=== PATIENT | female | born 1945 | race Caucasian/White ===

== ENCOUNTER 2018-08-31 08:42 | Emergency (ER) | payer MEDICARE, BC ==
--- OUTSIDE RECORDS SUMMARY | 2018-08-31 08:56 | XMS REPORT | Continuity of Care Document ---
:1945 External Reference #:[id number] Author Name Laxmi Maza PA Address [address] [place] [address] Care Team Providers Name Role Phone Juanpablo De La Torre M.D. Care Team Information [employer] Unavailable Payers Type Date Identification Numbers Payment Provider Subscriber Effective: 2011 Policy Number: [id number] Medicare - NGS [employer] Name: Medicare [address] PayID: [id number] [place] [address] Effective: 2011 Policy Number: [id number] / [place]- Ppo [employer]yna [employer] PayID: [id number] [address] [address] [place] [address] Advance Directives Type Date Description Status Comment Other Directive 05/31/2010 Health Care Proxy Current and Verified Problems Date Description Provider Status Onset: 01/11/2013 Mixed hyperlipidemia Kobi Schuler Active Onset: 01/11/2013 Pure hypercholesterolemia Kobi Schuler Active Onset: 01/11/2013 Anxiety state Kobi Schuler Active Onset: 02/06/2016 Essential hypertension Laxmi Maza PA Active Onset: 02/06/2016 Gastro-esophageal reflux disease with Laxmi Maza PA Active esophagitis Onset: 04/30/2018 Gastro-esophageal reflux disease with Laxmi Maza PA Active esophagitis Family History Date Family Member(s) Problem(s) Comments Father due to Unknown Causes () Mother due to Liver Cancer () Social History Type Date Description Comments Sex Unknown Marital Status Has been 1 time Lives With Alone 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[employer] ETOH Use Rarely consumes alcohol Tobacco Use Start: 11/17/66 Patient is a former quit 20 yrs End: 11/17/92 smoker agoDocument: 05/05/12 - History 04/19/14 08/15/14 09/15/14 Recreational Drug Use Denies Drug Use Smoking Status Reviewed: 08/04/18 Patient is a former quit 20 yrs smoker agoDocument: 05/05/12 - History 04/19/14 08/15/14 09/15/14 Allergies, Adverse Reactions, Alerts Date Description Reaction Status Severity Comments 05/05/2012 Amoxicillin Active 01/22/2016 Crestor joint reaction Active Medications Medication Date Status Form Strength Qnty SIG Indications Ordering Provider Pravastatin Active Tablets 80mg 90tabs take 1 E78.5 Juanpablo Sodium 016 tablet by Murphy mouth at s, M.DKanwal bedtime Omeprazole Active Capsules 20mg 90caps take one Juanpablo 014 DR capsule Murphy by mouth s, M.DKanwal every day Carvedilol Active Tablets 6.25mg 60tabs take one Juanpablo 014 tablet by Murphy mouth s, M.DKanwal twice a day Cozaar Active Tablets 50mg 90tabs take one R06.02 Juanpablo 014 tablet by Murphy mouth s, MSandra every day Lorazepam Hx Tablets 1mg 2tabs 1 by 793.80 Juanpablo 015 - mouth one Murphy hour sOsbaldo 016 prior to procedure ,if needed may repeat Pravastatin Hx Tablets 20mg 90tabs 1 by Juanpablo Sodium 015 - mouth Murphy every day sOsbaldo 015 Pravastatin Hx Tablets 80mg 90tabs one every Juanpablo Sodium 015 - evening Murphy sOsbaldo 016 Crestor Hx Tablets 20mg 90tabs 1 by Juanpablo 014 - mouth Murphy every day s MSandra 015 Prilosec Hx Capsules 20mg 90caps 1 by 530.11 Juanpablo 014 - DR mouth Murphy every day sOsbaldo 015 Lisinopril Hx Tablets 10mg 30tabs 1 by 401.9 Juanpablo 014 - mouth Murphy every day sOsbaldo 014 Pravastatin Hx Tablets 80mg 30tabs one q Juanpablo Sodium 014 - evening Murphy Osbaldo jansen 014 Lisinopril Hx Tablets 5mg 30tabs 1 by 401.9 Juanpablo 014 - mouth Murphy every day Osbaldo jansen 014 Pravastatin Hx Tablets 40mg take 2 272.2 Juanpablo Sodium 014 - tablet by Murphy mouth at Osbaldo jansen 014 bedtime Pravastatin Hx Tablets 40mg 30tabs take one 272.2 Juanpablo Sodium 014 - tablet by Murphy mouth Osbaldo jansen 014 every evening Right Hx Juanpablo Stereotactic 014 - Murphy Breast Biopsy Osbaldo jansen 014 Pravastatin Hx Tablets 20mg 90tabs 1 po qday 272.2 Juanpablo Sodium 012 - needs Murphy appt for Osbaldo jansen 014 further refill Carvedilol Hx Tablets 3.125mg Unknown 000 - 014 Immunizations CPT Code Status Date Vaccine Reaction Lot # 70176 Given 08/04/2018 Flu High Dose Vaccine risk & benefits HD FluVac discussed [id number] 80662 Given 08/01/2016 Flu High Dose Vaccine risk & benefits Hidose Flu discussed [id number] 56599 Given 08/04/2015 Flu High Dose Vaccine risk & benefits Hi/dose/flu discussed [id number] 10797 Given 08/15/2014 Flu High Dose Vaccine risk & benefits High/do/Flu discussed [id number] 59857 Given 01/24/2014 Shingles (Zoster) risk & benefits Shingles [id number] Vaccine discussed p 19587 Given 01/17/2014 Prevnar 13 64617 Given 08/10/2013 Flu High Dose Vaccine High doseflu [id number] 19981 Given 08/03/2012 Flu High Dose Vaccine High dose [id number] 03456 Given 08/27/2010 Flu Triv Old Code 90038 Given 09/25/2009 Flu Triv Old Code 39511 Given 09/25/2009 Swine flu administration 99089 Given 05/10/2009 Tdap Vaccine over 7 yrs old Vital Signs Date Vital Result Comment 08/04/2018 8:35am Weight 138.00 lb 04/30/2018 8:36am Weight 139.00 lb BP Systolic 132 mmHg BP Diastolic 80 mmHg 01/27/2018 8:41am Weight 139.00 lb BP Systolic 130 mmHg BP Diastolic 80 mmHg Height 56 inches 4'8" Body Temperature 98.0 F Respiratory Rate 12 /min BMI (Body Mass Index) 31.2 kg/m2 11/04/2017 8:28am Weight 141.00 lb BP Systolic 134 mmHg BP Diastolic 80 mmHg 08/07/2017 8:30am Weight 141.00 lb BP Systolic 140 mmHg BP Diastolic 80 mmHg 05/02/2017 8:34am Weight 140.00 lb BP Systolic 134 mmHg BP Diastolic 80 mmHg 01/22/2017 8:30am Weight 141.00 lb BP Systolic 130 mmHg BP Diastolic 80 mmHg Height 56 inches 4'8" Body Temperature 97.0 F Respiratory Rate 12 /min BMI (Body Mass Index) 31.6 kg/m2 10/23/2016 8:47am Weight 139.00 lb w boots BP Systolic 124 mmHg BP Diastolic 74 mmHg 07/24/2016 9:15am Weight 140.00 lb BP Systolic 136 mmHg BP Diastolic 80 mmHg 04/23/2016 9:10am Weight 140.00 lb BP Systolic 124 mmHg BP Diastolic 80 mmHg 01/22/2016 8:32am Weight 138.00 lb BP Systolic 130 mmHg BP Diastolic 84 mmHg Height 56.6 inches 4'8.60" Heart Rate 70 /min Body Temperature 98.0 F Respiratory Rate 14 /min BMI (Body Mass Index) 30.3 kg/m2 09/15/2015 8:41am Weight 138.00 lb BP Systolic 118 mmHg BP Diastolic 68 mmHg 06/14/2015 9:00am Weight 135.00 lb BP Systolic 128 mmHg BP Diastolic 78 mmHg 03/09/2015 10:09am Weight 135.00 lb BP Systolic 126 mmHg BP Diastolic 70 mmHg 02/07/2015 9:11am Weight 135.00 lb BP Systolic 128 mmHg BP Diastolic 80 mmHg 12/15/2014 8:33am Weight 136.00 lb BP Systolic 128 mmHg BP Diastolic 60 mmHg 09/15/2014 9:22am Weight 133.00 lb BP Systolic 168 mmHg BP Diastolic 90 mmHg 08/15/2014 9:20am Weight 131.00 lb BP Systolic 150 mmHg pt machine 149/77 BP Diastolic 80 mmHg pt machine 149/77 07/12/2014 9:20am Weight 130.00 lb BP Systolic 130 mmHg BP Diastolic 80 mmHg 06/20/2014 10:15am Weight 128.00 lb BP Systolic 154 mmHg BP Diastolic 78 mmHg Heart Rate 70 /min O2 % BldC Oximetry 98 % 05/27/2014 11:01am Weight 128.00 lb BP Systolic 148 mmHg BP Diastolic 80 mmHg 04/19/2014 9:31am BP Systolic 138 mmHg BP Diastolic 84 mmHg 04/19/2014 8:58am Weight 130.00 lb BP Systolic 156 mmHg BP Diastolic 90 mmHg 01/17/2014 9:49am Weight 128.00 lb BP Systolic 128 mmHg BP Diastolic 78 mmHg Height 56.6 inches 4'8.60" Heart Rate 70 /min Body Temperature 97.0 F Respiratory Rate 12 /min BMI (Body Mass Index) 28.1 kg/m2 07/12/2013 1:19pm Weight 125.00 lb BP Systolic 126 mmHg BP Diastolic 80 mmHg 01/11/2013 1:18pm Weight 127.00 lb BP Systolic 126 mmHg BP Diastolic 80 mmHg 10/12/2012 1:04pm Weight 131.00 lb BP Systolic 130 mmHg BP Diastolic 70 mmHg 08/17/2012 1:05pm Weight 128.00 lb BP Systolic 150 mmHg BP Diastolic 68 mmHg 08/03/2012 1:34pm Weight 130.00 lb BP Systolic 150 mmHg giselle after 10 mins 140/78 BP Diastolic 80 mmHg giselle after 10 mins 140/78 Heart Rate 78 /min O2 % BldC Oximetry 98 % 05/05/2012 11:27am Weight 129.00 lb BP Systolic 128 mmHg BP Diastolic 80 mmHg Results Test Date Facility Test Result H/L Range Note Basic Metabolic Panel 04/20/2018 [facility] Glucose 110 mg/dL High 74-106 8 [phone] BUN 14 mg/dL 7-18 Creatinine 0.8 mg/dL 0.6-1.3 Glom Filtration Rate, Estimate >60 mL/min >60 If >60 mL/min >60 2 BUN/Creat 17.5 ratio Sodium 141 mmol/L 136-145 Potassium 3.8 mmol/L 3.5-5.1 Chloride 109 mmol/L High 98-107 Carbon Dioxide 23 mmol/L 21-32 Anion Gap 9 mEq/L 8-16 Calcium 9.0 mg/dL 8.5-10.1 CBC Auto Diff 04/20/2018 [facility] White Blood Count 5.5 K/uL 3.1 -10.7 [phone] Red Blood Count 4.06 M/uL 3.90-5.40 Hemoglobin 13.0 gm/dL 11.6-15.8 Hematocrit 38.8 % 36.0-46.1 Mean Cell Volume 95.6 fl 80.9-99.0 Mean Corpuscular HGB 32.0 pg 25.9-32.7 Mean Corpuscular HGB Conc 33.5 g/dL 30.8-34.3 Platelet Count 280 K/uL 155-360 Red Cell Distri Width SD 43.5 fl 3-47 Red Cell Distri Width %CV 12.8 % 11.7-14.4 Mean Platelet Volume 12.3 fL 8.9-12.4 Neut% 57.9 % 40.4-72.8 Lymph % 29.5 % 20.0-42.0 Mckenzie % 8.4 % 4.3-13.2 Eo% 3.7 % 0.0-6.6 Bas% 0.5 % 0.0-1.1 Neut# 3.16 K/uL 1.8-7.0 Lymph # 1.61 K/uL 1.0-4.0 Mckenzie # 0.46 K/uL 0.3-0.9 Eos # 0.20 K/uL 0.0-0.5 Baso # 0.03 K/uL 0.0-0.1 Lipid Profile 04/20/2018 [facility] Cholesterol 186 mg/dL <200 3 (Trig/Chol/HDL) [phone] Triglycerides 295 mg/dL High <150 4 HDL Cholesterol 36 mg/dL Low >40 5 LDL-Cholesterol 91 mg/dL < 100 6 Liver Function Panel 04/20/2018 [facility] Total Protein 7.3 g/dL 6.4-8.2 [phone] Albumin 3.9 g/dL 3.4-5.0 Globulin 3.4 g/dL 1.9-4.3 Alb/Glob 1.1 ratio Bilirubin,Total 0.7 mg/dL 0.2-1.0 Bilirubin,Direct 0.2 mg/dL 0.0-0.2 Bilirubin,Indirect 0.5 mg/dL 0.0-0.9 Sgot/Ast 15 U/L 15-37 SGPT/Alt 25 U/L 12-78 Alkaline Phosphatase 74 U/L 45-117 Basic Metabolic Panel 01/19/2018 [facility] Glucose 115 mg/dL High 74-106 7 [phone] BUN 15 mg/dL 7-18 Creatinine 0.7 mg/dL 0.6-1.3 Glom Filtration Rate, Estimate >60 mL/min >60 If >60 mL/min >60 8 BUN/Creat 21.4 ratio Sodium 142 mmol/L 136-145 Potassium 4.0 mmol/L 3.5-5.1 Chloride 109 mmol/L High 98-107 Carbon Dioxide 27 mmol/L 21-32 Anion Gap 6 mEq/L Low 8-16 Calcium 9.3 mg/dL 8.5-10.1 CBC No Diff 01/19/2018 [facility] White Blood Count 5.8 K/uL 3.1- 10.7 [phone] Red Blood Count 4.20 M/uL 3.90-5.40 Hemoglobin 13.4 gm/dL 11.6-15.8 Hematocrit 39.7 % 36.0-46.1 Mean Cell Volume 94.5 fl 80.9-99.0 Mean Corpuscular HGB 31.9 pg 25.9-32.7 Mean Corpuscular HGB Conc 33.8 g/dL 30.8-34.3 Platelet Count 283 K/uL 155-360 Red Cell Distri Width %CV 12.8 % 11.7-14.4 Mean Platelet Volume 12.3 fL 8.9-12.4 Liver Function Panel 01/19/2018 [facility] Total Protein 7.9 g/dL 6.4-8.2 [phone] Albumin 4.0 g/dL 3.4-5.0 Globulin 3.9 g/dL 1.9-4.3 Alb/Glob 1.0 ratio Bilirubin,Total 0.6 mg/dL 0.2-1.0 Bilirubin,Direct 0.2 mg/dL 0.0-0.2 Bilirubin,Indirect 0.4 mg/dL 0.0-0.9 Sgot/Ast 19 U/L 15-37 SGPT/Alt 21 U/L 12-78 Alkaline Phosphatase 78 U/L 45-117 Liver Function Panel 07/28/2017 [facility] Total Protein 7.5 g/dL 6.4-8.2 9 [phone] Albumin 3.7 g/dL 3.4-5.0 Globulin 3.8 g/dL 1.9-4.3 Alb/Glob 1.0 ratio Bilirubin,Total 0.6 mg/dL 0.2-1.0 Bilirubin,Direct 0.2 mg/dL 0.0-0.2 Bilirubin,Indirect 0.4 mg/dL 0.0-0.9 Sgot/Ast 22 U/L 15-37 SGPT/Alt 39 U/L 12-78 Alkaline Phosphatase 79 U/L 45-117 Basic Metabolic Panel 07/28/2017 [facility] Glucose 110 mg/dL High 74-106 [phone] BUN 11 mg/dL 7-18 Creatinine 0.8 mg/dL 0.6-1.3 Glom Filtration Rate, Estimate >60 mL/min >60 If >60 mL/min >60 10 BUN/Creat 13.7 ratio Sodium 142 mmol/L 136-145 Potassium 3.9 mmol/L 3.5-5.1 Chloride 108 mmol/L High 98-107 Carbon Dioxide 25 mmol/L 21-32 Anion Gap 9 mEq/L 8-16 Calcium 9.5 mg/dL 8.5-10.1 Lipid Profile 07/28/2017 [facility] Cholesterol 198 mg/dL <200 11 (Trig/Chol/HDL) [phone] Triglycerides 296 mg/dL High <150 12 HDL Cholesterol 39 mg/dL Low >40 13 LDL-Cholesterol 100 mg/dL < 100 14 CBC No Diff 07/28/2017 [facility] White Blood Count 5.9 K/uL 3.1- 10.7 [phone] Red Blood Count 4.19 M/uL 3.90-5.40 Hemoglobin 13.6 gm/dL 11.6-15.8 Hematocrit 40.2 % 36.0-46.1 Mean Cell Volume 95.9 fl 80.9-99.0 Mean Corpuscular HGB 32.5 pg 25.9-32.7 Mean Corpuscular HGB Conc 33.8 g/dL 30.8-34.3 Platelet Count 304 K/uL 150-400 Red Cell Distri Width %CV 12.6 % 11.7-14.4 Mean Platelet Volume 12.1 fL 8.9-12.4 Xray 02/10/2017 [facility] Dexa scan <pending> [address] [place], [place] [id number] [phone] Xray 02/07/2017 [facility] bilateral <pending> [address] [place] [address] [phone] Basic Metabolic 10/14/2016 [facility] Glucose 108 mg/dL High 74- 106 15 Panel [phone] BUN 11 mg/dL 7-18 Creatinine 0.8 mg/dL 0.6-1.3 Glom Filtration Rate, Estimate >60 mL/min >60 If >60 mL/min >60 16 BUN/Creat 13.7 ratio Sodium 142 mmol/L 136-145 Potassium 3.8 mmol/L 3.5-5.1 Chloride 109 mmol/L High 98-107 Carbon Dioxide 24 mmol/L 21-32 Anion Gap 9 mEq/L 8-16 Calcium 8.8 mg/dL 8.5-10.1 CBC No Diff 10/14/2016 [facility] White Blood Count 5.7 K/uL 3.1- 10.7 [phone] Red Blood Count 4.28 M/uL 3.90-5.40 Hemoglobin 13.6 gm/dL 11.6-15.8 Hematocrit 41.2 % 36.0-46.1 Mean Cell Volume 96.3 fl 80.9-99.0 Mean Corpuscular HGB 31.8 pg 25.9-32.7 Mean Corpuscular HGB Conc 33.0 g/dL 30.8-34.3 Platelet Count 290 K/uL 155-360 Red Cell Distri Width %CV 12.8 % 11.7-14.4 Mean Platelet Volume 13.1 fL High 8.9-12.4 Lipid Profile 10/14/2016 [facility] Cholesterol 187 mg/dL <200 17 (Trig/Chol/HDL) [phone] Triglycerides 282 mg/dL High <150 18 HDL Cholesterol 41 mg/dL >40 19 LDL-Cholesterol 90 mg/dL < 100 20 Liver Function Panel 10/14/2016 [facility] Total Protein 7.5 g/dL 6.4-8.2 [phone] Albumin 3.9 g/dL 3.4-5.0 Globulin 3.6 g/dL 1.9-4.3 Alb/Glob 1.1 ratio Bilirubin,Total 0.6 mg/dL 0.2-1.0 Bilirubin,Direct 0.1 mg/dL 0.0-0.2 Bilirubin,Indirect 0.5 mg/dL 0.0-0.9 Sgot/Ast 16 U/L 15-37 SGPT/Alt 27 U/L 12-78 Alkaline Phosphatase 71 U/L 45-117 Basic Metabolic Panel 01/08/2016 [facility] Glucose 111 mg/dL High 74-106 [phone] BUN 11 mg/dL 7-18 Creatinine 0.8 mg/dL 0.6-1.3 Glom Filtration Rate, Estimate >60 mL/min >60 If >60 mL/min >60 21 BUN/Creat 13.7 ratio Sodium 143 mmol/L 136-145 Potassium 3.7 mmol/L 3.5-5.1 Chloride 107 mmol/L 98-107 Carbon Dioxide 25 mmol/L 21-32 Anion Gap 11 mEq/L 8-16 Calcium 9.0 mg/dL 8.5-10.1 CBC W/Automated Diff 01/08/2016 [facility] White Blood 4.9 K/uL 3.1-10.7 [phone] Count Red Blood Count 4.18 M/uL 3.90-5.40 Hemoglobin 13.3 gm/dL 11.6-15.8 Hematocrit 40.1 % 36.0-46.1 Mean Cell Volume 95.9 fl 80.9-99.0 Mean Corpuscular HGB 31.8 pg 25.9-32.7 Mean Corpuscular HGB Conc 33.2 g/dL 30.8-34.3 Platelet Count 292 K/uL 155-360 Red Cell Distri Width SD 44.4 fl 3-47 Red Cell Distri Width %CV 12.8 % 11.7-14.4 Mean Platelet Volume 12.7 fL High 8.9-12.4 Neut% 54.4 % 40.4-72.8 Lymph % 33.5 % 17.0-46.1 Mckenzie % 8.0 % 4.3-13.2 Eo% 3.5 % 0.0-6.6 Bas% 0.6 % 0.0-1.1 Neut# 2.67 K/uL 1.8-7.0 Lymph # 1.64 K/uL Low 1.8-7.0 Mckenzie # 0.39 K/uL 0.3-0.9 Eos # 0.17 K/uL 0.0-0.5 Baso # 0.03 K/uL 0.0-0.1 LDL Cholesterol Profile 01/08/2016 [facility] Cholesterol 199 mg/dL <200 22 [phone] Triglycerides 299 mg/dL High <150 23 HDL Cholesterol 34 mg/dL Low >40 24 LDL-Cholesterol 105 mg/dL < 100 25 Liver Function Tests 01/08/2016 [facility] Total Protein 7.5 g/dL 6.4-8.2 [phone] Albumin 3.9 g/dL 3.4-5.0 Globulin 3.6 g/dL 1.9-4.3 Alb/Glob 1.1 ratio Bilirubin,Total 0.6 mg/dL 0.2-1.0 Bilirubin,Direct 0.1 mg/dL 0.0-0.2 Bilirubin,Indirect 0.5 mg/dL 0.0-0.9 Sgot/Ast 22 U/L 15-37 SGPT/Alt 39 U/L 12-78 Alkaline Phosphatase 77 U/L 45-117 Basic Metabolic Panel 01/09/2015 [facility] Glucose 101 mg/dL 74- 106 [phone] BUN 12 mg/dL 7-18 Creatinine 0.9 mg/dL 0.6-1.3 Glom Filtration Rate, Estimate >60 mL/min >60 If >60 mL/min >60 26 BUN/Creat 13.3 ratio Sodium 144 mmol/L 136-145 Potassium 3.7 mmol/L 3.5-5.1 Chloride 111 mmol/L High 98-107 Carbon Dioxide 26 mmol/L 21-32 Anion Gap 7 mEq/L Low 8-16 Calcium 8.6 mg/dL 8.5-10.1 Liver Function Tests 01/09/2015 [facility] Total Protein 7.1 g/dL 6.4-8.2 [phone] Albumin 3.8 g/dL 3.4-5.0 Globulin 3.3 g/dL 1.9-4.3 Alb/Glob 1.2 ratio Bilirubin,Total 0.7 mg/dL 0.2-1.0 Bilirubin,Direct 0.2 mg/dL 0.0-0.2 Bilirubin,Indirect 0.5 mg/dL 0.0-0.9 Sgot/Ast 15 U/L 15-37 SGPT/Alt 28 U/L 12-78 Alkaline Phosphatase 75 U/L 45-117 LDL Cholesterol Profile 01/09/2015 [facility] Cholesterol 165 mg/dL < 200 27 [phone] Triglycerides 216 mg/dL < 150 28 HDL Cholesterol 35 mg/dL > 40 29 LDL-Cholesterol 87 mg/dL < 100 30 Basic Metabolic Panel 09/05/2014 [facility] Glucose 104 mg/dL 74- 106 [phone] BUN 13 mg/dL 7-18 Creatinine 0.8 mg/dL 0.6-1.3 Glom Filtration Rate, Estimate >60 mL/min >60 If >60 mL/min >60 31 BUN/Creat 16.2 ratio Sodium 142 mmol/L 136-145 Potassium 3.9 mmol/L 3.5-5.1 Chloride 108 mmol/L High 98-107 Carbon Dioxide 28 mmol/L 21-32 Anion Gap 10 mEq/L 8-16 Calcium 9.1 mg/dL 8.5-10.1 Liver Function Tests 09/05/2014 [facility] Total Protein 7.6 g/dL 6.4-8.2 [phone] Albumin 3.9 g/dL 3.4-5.0 Globulin 3.7 g/dL 1.9-4.3 Alb/Glob 1.1 ratio Bilirubin,Total 0.5 mg/dL 0.2-1.0 Bilirubin,Direct 0.1 mg/dL 0.0-0.2 Bilirubin,Indirect 0.4 mg/dL 0.0-0.9 Sgot/Ast 15 U/L 15-37 SGPT/Alt 28 U/L 12-78 Alkaline Phosphatase 73 U/L 45-117 LDL Cholesterol Profile 09/05/2014 [facility] Cholesterol 204 mg/dL 32 [phone] Triglycerides 311 mg/dL 33 HDL Cholesterol 37 mg/dL 34 LDL-Cholesterol 105 mg/dL 35 Laboratory test 09/05/2014 [facility] CK-MB (Mass) 0.9 ng/ml 0.5- 3.6 finding [phone] LDL Cholesterol 06/13/2014 [facility] Cholesterol 188 mg/dL 120- 200 Profile [phone] Triglycerides 206 mg/dL 16-231 HDL Cholesterol 38 mg/dL 29-83 LDL-Cholesterol 109 mg/dL 62-185 Liver Function Tests 06/13/2014 [facility] Total Protein 7.6 g/dL 6.3-8.0 [phone] Albumin 3.8 g/dL 3.5-5.0 Globulin 3.8 g/dL 1.9-4.3 Alb/Glob 1.0 ratio Bilirubin,Total 0.7 mg/dL 0.2-1.2 Bilirubin,Direct 0.1 mg/dL 0.1-0.4 Bilirubin,Indirect 0.6 mg/dL 0.0-0.9 Sgot/Ast 16 U/L 16-40 SGPT/Alt 32 U/L 30-65 Alkaline Phosphatase 79 U/L 50-136 Laboratory test 05/23/2014 [facility] D-Dimer, < 0.22 ug/mL 36 finding [phone] Quantitative Thyroid Stim Hormone 1.76 uIU/mL 0.49-4.67 CBC W/Automated Diff 05/23/2014 [facility] White Blood 6.5 K/uL 3.1-10.7 [phone] Count Red Blood Count 4.09 M/uL 3.90-5.40 Hemoglobin 13.3 gm/dL 11.6-15.8 Hematocrit 38.7 % 36.0-46.1 Mean Cell Volume 94.6 fl 80.9-99.0 Mean Corpuscular HGB 32.5 pg 25.9-32.7 Mean Corpuscular HGB Conc 34.4 g/dL High 30.8-34.3 Platelet Count 354 K/uL 155-360 Red Cell Distri Width SD 42.8 fl 3-47 Red Cell Distri Width %CV 12.6 % 11.7-14.4 Mean Platelet Volume 11.8 fL 8.9-12.4 Neut% 57.9 % 40.4-72.8 Lymph % 32.1 % 17.0-46.1 Mckenzie % 7.5 % 4.3-13.2 Eo% 1.7 % 0.0-6.6 Bas% 0.8 % 0.0-1.1 Neut# 3.78 K/uL 1.0-7.0 Lymph # 2.09 K/uL 0.8-3.4 Mckenzie # 0.49 K/uL 0.3-0.9 Eos # 0.11 K/uL 0.0-0.5 Baso # 0.05 K/uL 0.0-0.1 Laboratory test finding 05/23/2014 [facility] CK 75 U/L 26-190 [phone] Troponin-I < 0.02 ng/mL 0.00-0.50 37 Comprehensive Metabolic 05/23/2014 [facility] Glucose 112 mg/dL 76 -115 Panel [phone] BUN 15 mg/dL 5-23 Creatinine 0.7 mg/dL 0.5-1.4 Glom Filtration Rate, Estimate >60 mL/min >60 If >60 mL/min >60 38 BUN/Creat 21.4 ratio Sodium 138 mmol/L 136-145 Potassium 3.7 mmol/L 3.5-5.1 Chloride 106 mmol/L 98-107 Carbon Dioxide 25 mEq/L 18-29 Anion Gap 11 mEq/L 8-16 Calcium 9.1 mg/dL 8.5-10.1 Total Protein 7.7 g/dL 6.3-8.0 Albumin 3.9 g/dL 3.5-5.0 Globulin 3.8 g/dL 1.9-4.3 Alb/Glob 1.0 ratio Bilirubin,Total 0.4 mg/dL 0.2-1.2 Sgot/Ast 16 U/L 16-40 SGPT/Alt 28 U/L Low 30-65 Alkaline Phosphatase 83 U/L 50-136 LDL Cholesterol Profile 04/06/2014 [facility] Cholesterol 193 mg/dL 120-200 [phone] Triglycerides 238 mg/dL High 16-231 HDL Cholesterol 38 mg/dL 29-83 LDL-Cholesterol 107 mg/dL 62-185 Xray 01/24/2014 [facility] dexa scan <pending> Xray 01/24/2014 [facility] [address] bilateral <pending> [address] [place] [address] mammogram [phone] Laboratory test 01/17/2014 [facility] ThinPrep Pap: See Note 39 finding [phone] Cervix/Endocx Liver Function 01/05/2014 [facility] Total Protein 7.7 g/dL 6.3- 8.0 Tests [phone] Albumin 3.9 g/dL 3.5-5.0 Globulin 3.8 g/dL 1.9-4.3 Alb/Glob 1.0 ratio Bilirubin,Total 0.5 mg/dL 0.2-1.2 Bilirubin,Direct 0.1 mg/dL 0.1-0.4 Bilirubin,Indirect 0.4 mg/dL 0.0-0.9 Sgot/Ast 20 U/L 16-40 SGPT/Alt 27 U/L Low 30-65 Alkaline Phosphatase 90 U/L 50-136 Basic Metabolic Panel 01/05/2014 [facility] Glucose 104 mg/dL 76- 115 [phone] BUN 13 mg/dL 5-23 Creatinine 0.7 mg/dL 0.5-1.4 Glom Filtration Rate, Estimate >60 mL/min >60 If >60 mL/min >60 40 BUN/Creat 18.5 ratio Sodium 139 mmol/L 136-145 Potassium 4.0 mmol/L 3.5-5.1 Chloride 109 mmol/L High 98-107 Carbon Dioxide 24 mEq/L 18-29 Anion Gap 10 mEq/L 8-16 Calcium 8.9 mg/dL 8.5-10.1 LDL Cholesterol Profile 01/05/2014 [facility] Cholesterol 199 mg/dL 120-200 [phone] Triglycerides 208 mg/dL 16-231 HDL Cholesterol 38 mg/dL 29-83 LDL-Cholesterol 119 mg/dL 62-185 LDL Cholesterol Profile 07/05/2013 [facility] Cholesterol 144 mg/dL 120-200 [phone] Triglycerides 109 mg/dL 16-231 HDL Cholesterol 43 mg/dL 29-83 LDL-Cholesterol 79 mg/dL 62-185 Calculi,Urinary,With Photo 07/02/2013 [facility] Color Rivers . [phone] Size 5x4x3 mm . Weight 30.0 mg . Composition See Note 41 Ca Oxalate,Dihydrate 05 % . Ca Oxalate,Monohydrate 05 % . Calcium Phosphate 90 % . Nidus See Note . 42 Urine Screen 06/30/2013 [facility] Urine Color YELLOW Yellow [phone] Urine Clarity CLEAR Clear Urine Glucose - Dipstick NEGATIVE mg/dL Negative Urine Bilirubin - Dipstick NEGATIVE Negative Urine Ketone NEGATIVE mg/dL Negative Urine Specific Baker <=1.005 Low 1.010-1.030 Urine Blood NEGATIVE Negative Urine PH 6.0 Low 6.5-7.5 Urine Protein - Dipstick NEGATIVE mg/dL Negative Urine Urobilinogen - Dipstick 0.2 E.U./dL 0.2-1.0 Urine Nitrite - Dipstick NEGATIVE Negative Urine Leuk Esterase NEGATIVE Negative Basic Metabolic Panel 06/30/2013 [facility] Glucose 89 mg/dL 76- 115 [phone] BUN 9 mg/dL 5-23 Creatinine 0.7 mg/dL 0.5-1.4 Glom Filtration Rate, Estimate >60 mL/min >60 If >60 mL/min >60 43 BUN/Creat 12.8 ratio Sodium 139 mmol/L 136-145 Potassium 3.9 mmol/L 3.5-5.1 Chloride 106 mmol/L 98-107 Carbon Dioxide 24 mEq/L 18-29 Anion Gap 13 mEq/L 8-16 Calcium 9.5 mg/dL 8.5-10.1 CBC 06/30/2013 [facility] White Blood Count 7.9 K/uL 3.1-10.7 [phone] Red Blood Count 4.31 M/uL 3.90-5.40 Hemoglobin 13.6 gm/dL 11.6-15.8 Hematocrit 41.2 % 36.0-46.1 Mean Cell Volume 95.6 fl 80.9-99.0 Mean Corpuscular HGB 31.6 pg 25.9-32.7 Mean Corpuscular HGB Conc 33.0 g/dL 30.8-34.3 Platelet Count 354 K/uL 155-360 Red Cell Distri Width %CV 12.7 % 11.7-14.4 Mean Platelet Volume 12.1 fL 8.9-12.4 LDL Cholesterol Profile 01/04/2013 [facility] Cholesterol 193 mg/dL 120-200 [phone] Triglycerides 224 mg/dL 16-231 HDL Cholesterol 41 mg/dL 29-83 LDL-Cholesterol 107 mg/dL 62-185 Liver Function Tests 01/04/2013 [facility] Total Protein 7.6 g/dL 6.3-8.0 [phone] Albumin 4.1 g/dL 3.5-5.0 Globulin 3.5 g/dL 1.9-4.3 Alb/Glob 1.2 ratio Bilirubin,Total 0.7 mg/dL 0.2-1.2 Bilirubin,Direct 0.1 mg/dL 0.1-0.4 Bilirubin,Indirect 0.6 mg/dL 0.0-0.9 Sgot/Ast 15 U/L Low 16-40 SGPT/Alt 29 U/L Low 30-65 Alkaline Phosphatase 94 U/L 50-136 1 E78.5,I.10 2 Note: Persistent reduction for 3 months or more in an eGFR <60 mL/min/1.73 m2 defines CKD. Patients with eGFR values >/=60 mL/min/1.73 m2 may also have CKD if evidence of persistent proteinuria is present. The original MDRD equation for estimated GFR is not valid for patients less than 18 years of age. Additional information may be found at [email or web address]. 3 Reference Guidelines*: Desirable: ........... < 200 mg/dL Borderline High: ..... 200-239 mg/dL High: ................ >=240 mg/dL * The National Cholesterol Education Program (NCEP) 4 Reference Guidelines*: Normal: ............. < 150 mg/dL Borderline High: .... 150-199 mg/dL High: ............... 200-499 mg/dL Very High: .......... > 500 mg/dL * Source: National Cholesterol Education Program (NCEP) 5 Reference Guidelines*: Low HDL: ..... < 40 mg/dL Normal: ..... 40-60 mg/dL Desirable: ... > 60 mg/dL *The National Cholesterol Education Program(NCEP) 6 Reference Guidelines*: Optimal:........... <100 mg/dL Near Optimal....... 100-129 mg/dL Borderline High.... 130-159 mg/dL High............... 160-189 mg/dL Very High.......... >=190 mg/dL * Source: National Cholesterol Education Program (NCEP) 7 M19.90 K21.0 M19.90 I10 8 Note: Persistent reduction for 3 months or more in an eGFR <60 mL/min/1.73 m2 defines CKD. Patients with eGFR values >/=60 mL/min/1.73 m2 may also have CKD if evidence of persistent proteinuria is present. The original MDRD equation for estimated GFR is not valid for patients less than 18 years of age. Additional information may be found at www.kdoqi.org. 9 E78.5,I10,K21.0 10 Note: Persistent reduction for 3 months or more in an eGFR <60 mL/min/1.73 m2 defines CKD. Patients with eGFR values >/=60 mL/min/1.73 m2 may also have CKD if evidence of persistent proteinuria is present. The original MDRD equation for estimated GFR is not valid for patients less than 18 years of age. Additional information may be found at www.kdoqi.org. 11 Reference Guidelines*: Desirable: ........... < 200 mg/dL Borderline High: ..... 200-239 mg/dL High: ................ >=240 mg/dL * The National Cholesterol Education Program (NCEP) 12 Reference Guidelines*: Normal: ............. < 150 mg/dL Borderline High: .... 150-199 mg/dL High: ............... 200-499 mg/dL Very High: .......... > 500 mg/dL * Source: National Cholesterol Education Program (NCEP) 13 Reference Guidelines*: Low HDL: ..... < 40 mg/dL Normal: ..... 40-60 mg/dL Desirable: ... > 60 mg/dL *The National Cholesterol Education Program(NCEP) 14 Reference Guidelines*: Optimal:........... <100 mg/dL Near Optimal....... 100-129 mg/dL Borderline High.... 130-159 mg/dL High............... 160-189 mg/dL Very High.......... >=190 mg/dL * Source: National Cholesterol Education Program (NCEP) 15 E78.5,M67.40,K21.0,I10 16 Note: Persistent reduction for 3 months or more in an eGFR <60 mL/min/1.73 m2 defines CKD. Patients with eGFR values >/=60 mL/min/1.73 m2 may also have CKD if evidence of persistent proteinuria is present. The original MDRD equation for estimated GFR is not valid for patients less than 18 years of age. Additional information may be found at www.kdoqi.org. 17 Reference Guidelines*: Desirable: ........... < 200 mg/dL Borderline High: ..... 200-239 mg/dL High: ................ >=240 mg/dL * The National Cholesterol Education Program (NCEP) 18 Reference Guidelines*: Normal: ............. < 150 mg/dL Borderline High: .... 150-199 mg/dL High: ............... 200-499 mg/dL Very High: .......... > 500 mg/dL * Source: National Cholesterol Education Program (NCEP) 19 Reference Guidelines*: Low HDL: ..... < 40 mg/dL Normal: ..... 40-60 mg/dL Desirable: ... > 60 mg/dL *The National Cholesterol Education Program(NCEP) 20 Reference Guidelines*: Optimal:........... <100 mg/dL Near Optimal....... 100-129 mg/dL Borderline High.... 130-159 mg/dL High............... 160-189 mg/dL Very High.......... >=190 mg/dL * Source: National Cholesterol Education Program (NCEP) 21 Note: Persistent reduction for 3 months or more in an eGFR <60 mL/min/1.73 m2 defines CKD. Patients with eGFR values >/=60 mL/min/1.73 m2 may also have CKD if evidence of persistent proteinuria is present. The original MDRD equation for estimated GFR is not valid for patients less than 18 years of age. Additional information may be found at www.kdoqi.org. 22 Reference Guidelines*: Desirable: ........... < 200 mg/dL Borderline High: ..... 200-239 mg/dL High: ................ >=240 mg/dL * The National Cholesterol Education Program (NCEP) 23 Reference Guidelines*: Normal: ............. < 150 mg/dL Borderline High: .... 150-199 mg/dL High: ............... 200-499 mg/dL Very High: .......... > 500 mg/dL * Source: National Cholesterol Education Program (NCEP) 24 Reference Guidelines*: Low HDL: ..... < 40 mg/dL Normal: ..... 40-60 mg/dL Desirable: ... > 60 mg/dL *The National Cholesterol Education Program(NCEP) 25 Reference Guidelines*: Optimal:........... <100 mg/dL Near Optimal....... 100-129 mg/dL Borderline High.... 130-159 mg/dL High............... 160-189 mg/dL Very High.......... >=190 mg/dL * Source: National Cholesterol Education Program (NCEP) 26 Note: Persistent reduction for 3 months or more in an eGFR <60 mL/min/1.73 m2 defines CKD. Patients with eGFR values >/=60 mL/min/1.73 m2 may also have CKD if evidence of persistent proteinuria is present. The original MDRD equation for estimated GFR is not valid for patients less than 18 years of age. Additional information may be found at www.kdoqi.org. 27 Reference Guidelines*: Desirable: ........... < 200 mg/dL Borderline High: ..... 200-239 mg/dL High: ................ >=240 mg/dL * The National Cholesterol Education Program (NCEP) 28 Reference Guidelines*: Normal: ............. < 150 mg/dL Borderline High: .... 150-199 mg/dL High: ............... 200-499 mg/dL Very High: .......... > 500 mg/dL * Source: National Cholesterol Education Program (NCEP) 29 Reference Guidelines*: Low HDL: ..... < 40 mg/dL Normal: ..... 40-60 mg/dL Desirable: ... > 60 mg/dL *The National Cholesterol Education Program(NCEP) 30 Reference Guidelines*: Optimal:........... <100 mg/dL Near Optimal....... 100-129 mg/dL Borderline High.... 130-159 mg/dL High............... 160-189 mg/dL Very High.......... >=190 mg/dL * Source: National Cholesterol Education Program (NCEP) 31 Note: Persistent reduction for 3 months or more in an eGFR <60 mL/min/1.73 m2 defines CKD. Patients with eGFR values >/=60 mL/min/1.73 m2 may also have CKD if evidence of persistent proteinuria is present. The original MDRD equation for estimated GFR is not valid for patients less than 18 years of age. Additional information may be found at www.kdoqi.org. 32 Reference Guidelines*: Desirable: ........... < 200 mg/dL Borderline High: ..... 200-239 mg/dL High: ................ >=240 mg/dL * The National Cholesterol Education Program (NCEP) 33 Reference Guidelines*: Normal: ............. < 150 mg/dL Borderline High: .... 150-199 mg/dL High: ............... 200-499 mg/dL Very High: .......... > 500 mg/dL * Source: National Cholesterol Education Program (NCEP) 34 Reference Guidelines*: Low HDL: ..... < 40 mg/dL Normal: ..... 40-60 mg/dL Desirable: ... > 60 mg/dL *The National Cholesterol Education Program(NCEP) 35 Reference Guidelines*: Optimal:........... <100 mg/dL Near Optimal....... 100-129 mg/dL Borderline High.... 130-159 mg/dL High............... 160-189 mg/dL Very High.......... >=190 mg/dL * Source: National Cholesterol Education Program (NCEP) 36 <=0.49 ug/mL - Low likelihood of DIC, DVT or Pulmonary Embolism >0.49 ug/mL - Additional testing should be done to rule out DIC, DVT, or Pulmonary embolism as clinically indicated. ([facility] has established a 97.89% negative predictive value for thrombotic disease when a cutoff value of 0.5 ug/mL is used.) 37 0 - 0.5 ng/mL: No evidence of myocardial injury 0.6 - 1.4 ng/mL: Mild elevation, suggesting possible myocardial injury > 1.4 ng/mL: Consistent with myocardial injury 38 Note: Persistent reduction for 3 months or more in an eGFR <60 mL/min/1.73 m2 defines CKD. Patients with eGFR values >/=60 mL/min/1.73 m2 may also have CKD if evidence of persistent proteinuria is present. The original MDRD equation for estimated GFR is not valid for patients less than 18 years of age. Additional information may be found at www.kdoqi.org. 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 PAP ACCESSI QUESTIONNAIRE 11/26 PERTINENT CLINICAL HISTORY FOR PAP (ASSISTANT STRENGTH COACH) CYTOLOGY (Check all that apply): ? Post ? Menopause? Y LMP date: AGE 48 Last Pap: at [facility]? Y Abnormal Pap? N If Yes, date: Post Hysterectomy? Is cervix present? Y If patient had related surgical procedure: Related Therapy: Significant Clinical History: V76.2 DISCLAIMER: The Pap smear is a screening test and not a diagnostic procedure. False negative and false positive results can and do occur for a number of reasons. Regular screening provides an aid in detecting treatable cervical abnormalities, but should not be used as the only means for detecting cervical dysplasia and carcinoma. Jess OBANDOMARIO L 01/19/14 1322 40 Note: Persistent reduction for 3 months or more in an eGFR <60 mL/min/1.73 m2 defines CKD. Patients with eGFR values >/=60 mL/min/1.73 m2 may also have CKD if evidence of persistent proteinuria is present. The original MDRD equation for estimated GFR is not valid for patients less than 18 years of age. Additional information may be found at www.kdoqi.org. 41 Percentage (Represents the % composition) 42 No Nidus visualized Photograph will follow under separate cover. Physician questions regarding Calculi Analysis contact [facility] at: [phone]. Calculi report with photograph will follow via computer, mail or case technician delivery. Performed at: [facility] [employer] [id number] Roof Slater: Cale Wilson MD, Phone: [phone] 43 Note: Persistent reduction for 3 months or more in an eGFR <60 mL/min/1.73 m2 defines CKD. Patients with eGFR values >/=60 mL/min/1.73 m2 may also have CKD if evidence of persistent proteinuria is present. The original MDRD equation for estimated GFR is not valid for patients less than 18 years of age. Additional information may be found at www.[email or web address]. Procedures Date Code Description Status 02/13/2018 [id number] Mammogram Completed 06/19/2015 [id number] Colonoscopy Completed 06/20/2014 19276 Oximetry For Oxygen,Single Determ Completed 01/17/2014 84518 EKG Completed 06/13/2009 12287 Snellen Only Vison Completed 05/30/2009 78878 Hearing Test Completed Encounters Type Date Location Provider Dx Diagnosis Office Visit 08/04/2018 8:30a Main Office Laxmi Maza PA I10 Essential ( primary) hypertension E78.5 Hyperlipidemia, unspecified K21.0 Gastro-esophageal reflux disease with esophagitis M19.90 Unspecified osteoarthritis, unspecified site Z23 Encounter for immunization Office Visit 04/30/2018 8:30a Main Office Laxmi Maza PA I10 Essential ( primary) hypertension E78.5 Hyperlipidemia, unspecified K21.0 Gastro-esophageal reflux disease with esophagitis R00.2 Palpitations Office Visit 01/27/2018 8:30a Main Office Laxmi Maza PA Z00.01 Encounter for general adult medical exam w abnormal findings Z12.31 Encntr screen mammogram for malignant neoplasm of breast E78.5 Hyperlipidemia, unspecified I10 Essential (primary) hypertension Office Visit 11/04/2017 8:30a Main Office Laxmi Maza PA I10 Essential ( primary) hypertension E78.5 Hyperlipidemia, unspecified K21.0 Gastro-esophageal reflux disease with esophagitis M19.90 Unspecified osteoarthritis, unspecified site Office Visit 08/07/2017 8:30a Main Office Laxmi Maza PA I10 Essential ( primary) hypertension E78.5 Hyperlipidemia, unspecified K21.0 Gastro-esophageal reflux disease with esophagitis K52.3 Indeterminate colitis Office Visit 05/02/2017 8:30a Main Office Laxmi Maza PA I10 Essential ( primary) hypertension E78.5 Hyperlipidemia, unspecified K21.0 Gastro-esophageal reflux disease with esophagitis M25.541 Pain in joints of right hand M25.542 Pain in joints of left hand Office Visit 01/22/2017 8:30a Main Office Laxmi Maza PA Z00.01 Encounter for general adult medical exam w abnormal findings Z12.31 Encntr screen mammogram for malignant neoplasm of breast Z13.820 Encounter for screening for osteoporosis Office Visit 10/23/2016 8:45a Main Office Laxmi Maza PA I10 Essential ( primary) hypertension E78.5 Hyperlipidemia, unspecified K21.0 Gastro-esophageal reflux disease with esophagitis R42 Dizziness and giddiness Office Visit 07/24/2016 9:15a Main Office Laxmi Maza PA I10 Essential ( primary) hypertension E78.5 Hyperlipidemia, unspecified K21.0 Gastro-esophageal reflux disease with esophagitis M67.40 Ganglion, unspecified site R92.8 Oth abn and inconclusive findings on dx imaging of breast Office Visit 04/23/2016 9:00a Main Office Laxmi Maza PA I10 Essential ( primary) hypertension E78.5 Hyperlipidemia, unspecified K21.0 Gastro-esophageal reflux disease with esophagitis M67.40 Ganglion, unspecified site M54.5 Low back pain Office Visit 09/15/2015 8:30a Main Office Laxmi Maza PA E78.5 Hyperlipidemia, unspecified I10 Essential (primary) hypertension F41.9 Anxiety disorder, unspecified K21.0 Gastro-esophageal reflux disease with esophagitis Office Visit 06/14/2015 9:00a Main Office Laxmi Maza PA 727.43 Ganglion Unspec 272.4 Hyperlipidemia Other Unspec 401.9 Hypertension Unspec 690.10 Seborrheic Dermatitis Unspec Office Visit 03/09/2015 10:00a Main Office Laxmi Maza PA 272.4 Hyperlipidemia Other Unspec 401.9 Hypertension Unspec 300.00 Anxiety State Unspec 727.43 Ganglion Unspec Office Visit 02/07/2015 9:00a Main Office Laxmi Maza PA 272.4 Hyperlipidemia Other Unspec 401.9 Hypertension Unspec 530.11 Esophagitis Reflux 300.00 Anxiety State Unspec 785.1 Palpitations 793.80 Unspecified Abnormal Mammogram Office Visit 01/18/2015 9:30a Main Office Laxmi Maza PA V70.0 Examination General Medical Routine AT Health Care Facility 272.4 Hyperlipidemia Other Unspec 401.9 Hypertension Unspec 780.79 Malaise And Fatigue Other V76.12 Screening Mammogram Malig Luis E Other V76.41 Screening Malignant Neoplasm Rectum 527.3 Salivary Gland Abcess Office Visit 12/15/2014 8:30a Main Office Laxmi Maza PA 401.9 Hypertension Unspec 530.11 Esophagitis Reflux 272.4 Hyperlipidemia Other Unspec 300.00 Anxiety State Unspec Office Visit 09/15/2014 9:15a Main Office Laxmi Maza PA 401.9 Hypertension Unspec 530.11 Esophagitis Reflux 272.4 Hyperlipidemia Other Unspec Office Visit 08/15/2014 9:15a Main Office Laxmi Maza PA 401.9 Hypertension Unspec 272.4 Hyperlipidemia Other Unspec 786.05 Shortness Of Breath 786.2 Cough V04.81 Need For Prophylactic Vaccination & Inoculation/Influenza Office Visit 07/12/2014 9:15a Main Office Laxmi Maza PA 401.9 Hypertension Unspec 272.4 Hyperlipidemia Other Unspec 300.00 Anxiety State Unspec 785.1 Palpitations Office Visit 06/20/2014 10:15a Main Office Laxmi Maza PA 272.4 Hyperlipidemia Other Unspec 786.05 Shortness Of Breath 401.9 Hypertension Unspec 780.79 Malaise And Fatigue Other Office Visit 05/27/2014 10:30a Main Office Laxmi Maza PA 272.4 Hyperlipidemia Other Unspec 796.2 Blood Pressure Reading Elevated W/O Hypertension E905.3 Poisoning & Toxic Reaction Due To Venom Hornets Wasps & Bees Office Visit 04/19/2014 8:45a Main Office Laxmi Maza PA 272.4 Hyperlipidemia Other Unspec 796.2 Blood Pressure Reading Elevated W/O Hypertension 796.9 Abnormal Findings Other Nonspec 733.90 Bone & Cartilage Disorder Unspec Office Visit 01/17/2014 9:30a Main Office Laxmi Maza PA V70.0 Examination General Medical Routine AT Health Care Facility V76.41 Screening Malignant Neoplasm Rectum 272.2 Hyperlipidemia Mixed V76.10 Screening For Malignant Neoplasm Breast V82.9 Screening For Unspec Condition v03.82 Streptococcus Pneumoniae Vaccination Spec Other Office Visit 07/12/2013 1:15p Main Office Laxmi Maza PA 272.2 Hyperlipidemia Mixed 527.5 Salivary Gland Sialolithiasis 715.18 Osteoarthrosis Localized Prim Other Spec Sites Office Visit 01/11/2013 1:00p Main Office Harini, 272.2 Hyperlipidemia Mixed Kobi A PA 272.0 Hypercholesterolemia Pure 300.00 Anxiety State Unspec Office Visit 10/12/2012 1:00p Main Office Harini, 272.2 Hyperlipidemia Mixed Kobi A PA Office Visit 08/17/2012 1:00p Main Office Harini 786.05 Shortness Of Breath Kobi Ebony SOLIS 272.0 Hypercholesterolemia Pure Office Visit 08/03/2012 1:30p Main Office Kobi Schuler 786.05 Shortness Of A PA Breath 300.00 Anxiety State Unspec 724.5 Backache Unspec v04.81 Need For Prophylactic Vaccination & Inoculation/Influenza Office Visit 05/05/2012 11:00a Main Office Laxmi Maza PA 883.1 Open Wound Finger(S) Complicated 915.0 Injury Superficial Abrasion Fingers W/O Infection Office Visit 01/07/2011 4:30p Main Office Laxmi Maza PA 465.9 URI Upper Respiratory Infections Acute Unspec Sites 079.99 Viral Infection Unspec Office Visit 01/22/2010 2:45p Main Office Laxmi Maza PA 527.2 Salivary Gland Sialoadenitis Office Visit 01/08/2010 2:45p Main Office Laxmi Maza PA 527.2 Salivary Gland Sialoadenitis Office Visit 12/05/2009 3:00p Main Office Laxmi Maza PA 729.5 Pain In Limb Office Visit 11/29/2009 2:45p Main Office Laxmi Maza PA 719.47 Pain Joint Ankle & Foot Office Visit 10/19/2009 3:00p Main Office Laxmi Maza PA 527.2 Salivary Gland Sialoadenitis Office Visit 10/05/2009 2:45p Main Office Laxmi Maza PA 527.2 Salivary Gland Sialoadenitis Office Visit 06/13/2009 11:00a Main Office Laxmi Maza PA 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 Office Visit 05/30/2009 1:30p Main Office Laxmi Maza PA 780.4 Dizziness & Giddiness 388.30 Tinnitus Unspecified 723.1 Cervicalgia 716.90 Arthropathy Unspec Site Unspec 389.20 Mixed Hearing Loss, Unspecified Office Visit 10/05/2007 3:45p Main Office Laxmi Maza PA 465.9 URI Upper Respiratory Infections Acute Unspec Sites 786.2 Cough Office Visit 05/08/2007 9:45a Main Office Laxmi Maza PA 465.9 URI Upper Respiratory Infections Acute Unspec Sites 386.30 Labyrinthitis Unspec Plan of Treatment Future Appointment(s):11/03/2018 8:45 am - Laxmi Maza PA at Main [id number] 8:30 am - Laxmi Maza PA at Main [id number]/2018 - Laxmi Maza PAI10 Essential (primary) fcnsarffxmxyO14.5 Hyperlipidemia, unspecifiedFollow up: 3cqidtlX57.0 Gastro-esophageal reflux disease with cuhfiydhzoxI77.90 Unspecified osteoarthritis, unspecified siteZ23 Encounter for immunization
[2018-08-31 09:01] VITALS: BP 155/75
--- NOTE | 2018-08-31 09:11 | UC ---
Complaint Female HPI - HPI Summary HPI Summary: The patient is a 73-year-old female with a five-day history of dysuria urgency and frequency. TMs have improved somewhat while taking cranberry juice. He has no back pain or belly pain. He denies any fever or chills. She denies any nausea vomiting or diarrhea. He has no history of pyelonephritis or kidney stones. - History Of Current Complaint Chief Complaint: UCGU Stated Complaint: URINARY Hx Obtained From: Patient Onset/Duration: Gradual Onset, Lasting Days Timing: Constant Severity Initially: Mild Severity Currently: Moderate Pain Intensity: 5 - when voiding Pain Scale Used: 0-10 Numeric Character: Burning Aggravating Factor(s): Urination Associated Signs And Symptoms: Positive: Negative - Allergies/Home Medications Allergies/Adverse Reactions: Allergies Allergy/AdvReac Type Severity Reaction Status Date / Time rosuvastatin [From Crestor] Allergy Severe Joint Pain Verified 08/31/18 08:56 amoxicillin Allergy Intermediate Dizziness Verified 08/31/18 08:56 PMH/Surg Hx/FS Hx/Imm Hx Previously Healthy: Yes Endocrine History: Diabetes - Surgical History Surgical History: Yes Surgery Procedure, Year, and Place: mole removal from back - Family History Known Family History: Positive: Cardiac Disease, Hypertension - Social History Alcohol Use: Rare Substance Use Type: None Smoking Status (MU): Former Smoker Type: Cigarettes When Did the Patient Quit Smoking/Using Tobacco: 23 YRS AGO Review of Systems Constitutional: Negative Skin: Negative Eyes: Negative ENT: Negative Respiratory: Negative Cardiovascular: Negative Gastrointestinal: Negative Genitourinary: Dysuria, Frequency, Urgency Motor: Negative Neurovascular: Negative Musculoskeletal: Negative Neurological: Negative Psychological: Negative All Other Systems Reviewed And Are Negative: Yes Physical Exam Triage Information Reviewed: Yes Appearance: Well-Appearing, No Pain Distress, Well-Nourished Vital Signs: Initial Vital Signs Temp 97.4 F 08/31/18 08:55 Pulse 75 08/31/18 08:55 Resp 16 08/31/18 08:55 BP 155/75 08/31/18 08:55 Pulse Ox 99 08/31/18 08:55 Vital Signs Reviewed: Yes Eyes: Positive: Conjunctiva Clear ENT: Positive: Hearing grossly normal. Negative: Nasal congestion, Nasal drainage, Trismus, Muffled voice, Hoarse voice Neck: Positive: Supple Respiratory: Positive: Lungs clear, Normal breath sounds, No respiratory distress, No accessory muscle use Cardiovascular: Positive: RRR, No Murmur Abdomen Description: Positive: Nontender, No Organomegaly. Negative: CVA Tenderness (R), CVA Tenderness (L) Bowel Sounds: Positive: Present Musculoskeletal: Positive: ROM Intact, No Edema Neurological: Positive: Alert Psychological Exam: Normal Skin Exam: Normal Complaint Female Dx - Course Course Of Treatment: +++ leuks URINE - Differential Dx/Diagnosis Provider Diagnoses: UTI Discharge - Sign-Out/Discharge Documenting (check all that apply): Patient Departure All imaging exams completed and their final reports reviewed: No Studies - Discharge Plan Condition: Stable Disposition: HOME Prescriptions: Nitrofurantoin Monohyd/M-Cryst [Macrobid 100 mg Capsule] 100 mg PO BID #14 cap Patient Education Materials: Urinary Tract Infection in Women (ED) Referrals: Laxmi Maza PA [Primary Care Provider] - 2 Days Additional Instructions: recheck in 2-3 days if not better - Billing Disposition and Condition Condition: STABLE Disposition: Home
--- NOTE | 2018-09-02 11:23 | UC ---
- Progress Note Progress Note: + ecoli on Macrobid sensitive no change la 09/02 Discharge - Sign-Out/Discharge Documenting (check all that apply): Post-Discharge Follow Up All imaging exams completed and their final reports reviewed: No Studies - Discharge Plan Condition: Stable Disposition: HOME Prescriptions: Nitrofurantoin Monohyd/M-Cryst [Macrobid 100 mg Capsule] 100 mg PO BID #14 cap Patient Education Materials: Urinary Tract Infection in Women (ED) Referrals: Laxmi Maza PA [Primary Care Provider] - 2 Days Additional Instructions: recheck in 2-3 days if not better - Billing Disposition and Condition Condition: STABLE Disposition: Home
== END 2018-08-31 09:46 | disposition home or self-care (01) ==
LOC: UCCORT 08:42
DX: N39.0 Urinary tract infection, site not specified (principal); B96.20 Unspecified Escherichia coli [E. coli] as the cause of diseases classified elsewhere; Z88.8 Allergy status to other drugs, medicaments and biological substances; E11.9 Type 2 diabetes mellitus without complications; Z87.891 Personal history of nicotine dependence; Z88.0 Allergy status to penicillin
CPT/HCPCS: 81003; 87077; 87086; 87186; 99212; G0463

== ENCOUNTER 2018-11-18 09:00 | Emergency (ER) | payer MEDICARE, BC ==
--- OUTSIDE RECORDS SUMMARY | 2018-11-18 09:21 | XMS REPORT | Continuity of Care Document ---
:1945 External Reference #:[id number] Author Name Laxmi Maza PA Address [address] [place] [address] Care Team Providers Name Role Phone Juanpablo De La Torre M.D. 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 [address] [place] [address] Advance Directives Type Date Description Status Comment [...] End: 11/17/92 smoker agoDocument: 05/05/12 - History 6/308/15/14 09/15/14 Recreational Drug Use Denies Drug Use Smoking Status Reviewed: 11/03/18 Patient is a former quit 20 yrs smoker agoDocument: 05/05/12 - History 04/19/14 08/15/14 09/15/14 Allergies, Adverse Reactions, Alerts Date Description Reaction Status Severity Comments 05/05/2012 Amoxicillin Active 01/22/2016 Crestor joint reaction Active Medications Medication Date Status Form Strength Qnty SIG Indications Ordering Provider Pravastatin Active Tablets 80mg 90tabs take 1 E78.5 Juanpablo Sodium 016 tablet by Murphy mouth at s, M.D. bedtime Omeprazole Active Capsules 20mg 90caps take one Juanpablo 014 DR capsule Murphy by mouth s, M.D. every day Carvedilol Active Tablets 6.25mg 60tabs take one Juanpablo 014 tablet by Murphy mouth s, M.DKanwal twice a day Cozaar Active Tablets 50mg 90tabs take one R06.02 Juanpablo 014 tablet by Murphy mouth s, M.D. every day Lorazepam Hx Tablets 1mg 2tabs 1 by 793.80 Juanpablo 015 - mouth one Murphy hour s, M.Turner 016 prior to procedure ,if needed may repeat Pravastatin Hx Tablets 20mg 90tabs 1 by Juanpablo Sodium 015 - mouth Murphy every day s, M.DKanwal 015 Pravastatin Hx Tablets 80mg 90tabs one every Juanpablo Sodium 015 - evening Murphy s, M.Turner 016 Crestor Hx Tablets 20mg 90tabs 1 by Juanpablo 014 - mouth Murphy every day s, M.DKanwal 015 Prilosec Hx Capsules 20mg 90caps 1 by 530.11 Juanpablo 014 - DR mouth Murphy every day s, MSandra 015 Lisinopril Hx Tablets 10mg 30tabs 1 by 401.9 Juanpablo 014 - mouth Murphy every day s, Osbaldo 014 Pravastatin Hx Tablets 80mg 30tabs one [...] Code Status Date Vaccine Reaction Lot # [id number] Given 08/04/2018 Flu High Dose Vaccine risk & benefits HD FluVac discussed [id number] 54169 Given 08/01/2016 Flu High Dose Vaccine risk & benefits Hidose Flu discussed [id number] 82154 Given 08/04/2015 Flu High Dose Vaccine risk & benefits Hi/dose/flu discussed [id number] 89019 Given 08/15/2014 Flu High Dose Vaccine risk & benefits High/do/Flu discussed [id number] 30690 Given 01/24/2014 Shingles (Zoster) risk & benefits Shingles [id number] Vaccine discussed p 40992 Given 01/17/2014 Prevnar 13 25011 Given 08/10/2013 Flu High Dose Vaccine High doseflu [id number] 53890 Given 08/03/2012 Flu High Dose Vaccine High dose [id number] 28109 Given 08/27/2010 Flu Triv Old Code 01628 Given 09/25/2009 Flu Triv Old Code 38457 Given 09/25/2009 Swine flu administration 59226 Given 05/10/2009 Tdap Vaccine over 7 yrs old Vital Signs Date Vital Result Comment 11/03/2018 8:50am Weight 138.00 lb BP Systolic 128 mmHg BP Diastolic 76 mmHg 08/04/2018 8:35am Weight 138.00 lb 04/30/2018 8:36am [...] Date Facility Test Result H/L Range Note Poc Urinalysis 08/31/2018 [facility] [address] Poc Glucose, Negative Negative [phone] Urine Poc Bilirubin, Urine Negative Negative Poc Ketone, Urine Negative Negative Poc Specific [place], Urine <=1.005 Low 1.010-1.030 Poc Blood, Urine Trace-lysed Abnormal Negative Poc pH, Urine 6.0 N 5-9 Poc Protein, Urine Negative Negative Poc Urobilinogen, Urine 0.2 Negative Poc Nitrite, Urine Negative Negative Poc Leukocytes, Urine 3+ Abnormal Negative Poc Color, Urine Light yellow Poc Clarity, Urine Slightly Cloudy 1 Urine Culture And 08/31/2018 [facility] [address] Urine SEE RESULT 2, 3 Sensitivities [phone] Culture BELOW Basic Metabolic 04/20/2018 [facility] Glucose 110 mg/dL High 74-1 4 Panel [phone] BUN 14 mg/dL N 7-18 Creatinine 0.8 mg/dL N 0.6-1.3 Glom Filtration Rate, Estimate >60 mL/min >60 If >60 mL/min >60 5 BUN/Creat 17.5 ratio Sodium 141 mmol/L N 136-145 Potassium 3.8 mmol/L N 3.5-5.1 Chloride 109 mmol/L High 98-107 Carbon Dioxide 23 mmol/L N 21-32 Anion Gap 9 mEq/L N 8-16 Calcium 9.0 mg/dL N 8.5-10.1 CBC Auto Diff 04/20/2018 [facility] White Blood Count 5.5 K/uL N 3.1-10.7 [phone] Red Blood Count 4.06 M/uL N 3.90-5.40 Hemoglobin 13.0 gm/dL N 11.6-15.8 Hematocrit 38.8 % N 36.0-46.1 Mean Cell Volume 95.6 fl N 80.9-99.0 Mean Corpuscular HGB 32.0 pg N 25.9-32.7 Mean Corpuscular HGB Conc 33.5 g/dL N 30.8-34.3 Platelet Count 280 K/uL N 155-360 Red Cell Distri Width SD 43.5 fl N 3-47 Red Cell Distri Width %CV 12.8 % N 11.7-14.4 Mean Platelet Volume 12.3 fL N 8.9-12.4 Neut% 57.9 % N 40.4-72.8 Lymph % 29.5 % N 20.0-42.0 Gulf % 8.4 % N 4.3-13.2 Eo% 3.7 % N 0.0-6.6 Bas% 0.5 % N 0.0-1.1 Neut# 3.16 K/uL N 1.8-7.0 Lymph # 1.61 K/uL N 1.0-4.0 Gulf # 0.46 K/uL N 0.3-0.9 Eos # 0.20 K/uL N 0.0-0.5 Baso # 0.03 K/uL N 0.0-0.1 Lipid Profile 04/20/2018 [facility] Cholesterol 186 mg/dL <200 6 (Trig/Chol/HDL) [phone] Triglycerides 295 mg/dL High <150 7 HDL Cholesterol 36 mg/dL Low >40 8 LDL-Cholesterol 91 mg/dL < 100 9 Liver Function Panel 04/20/2018 [facility] Total Protein 7.3 g/dL N 6.4-8.2 [phone] Albumin 3.9 g/dL N 3.4-5.0 Globulin 3.4 g/dL N 1.9-4.3 Alb/Glob 1.1 ratio Bilirubin,Total 0.7 mg/dL N 0.2-1.0 Bilirubin,Direct 0.2 mg/dL N 0.0-0.2 Bilirubin,Indirect 0.5 mg/dL N 0.0-0.9 Sgot/Ast 15 U/L N 15-37 SGPT/Alt 25 U/L N 12-78 Alkaline Phosphatase 74 U/L N 45-117 Basic Metabolic Panel 01/19/2018 [facility] Glucose 115 mg/dL High 74-106 10 [phone] BUN 15 mg/dL N 7-18 Creatinine 0.7 mg/dL N 0.6-1.3 Glom Filtration Rate, Estimate >60 mL/min >60 If >60 mL/min >60 11 BUN/Creat 21.4 ratio Sodium 142 mmol/L N 136-145 Potassium 4.0 mmol/L N 3.5-5.1 Chloride 109 mmol/L High 98-107 Carbon Dioxide 27 mmol/L N 21-32 Anion Gap 6 mEq/L Low 8-16 Calcium 9.3 mg/dL N 8.5-10.1 CBC No Diff 01/19/2018 [facility] White Blood Count 5.8 K/uL N 3.1- 10.7 [phone] Red Blood Count 4.20 M/uL N 3.90-5.40 Hemoglobin 13.4 gm/dL N 11.6-15.8 Hematocrit 39.7 % N 36.0-46.1 Mean Cell Volume 94.5 fl N 80.9-99.0 Mean Corpuscular HGB 31.9 pg N 25.9-32.7 Mean Corpuscular HGB Conc 33.8 g/dL N 30.8-34.3 Platelet Count 283 K/uL N 155-360 Red Cell Distri Width %CV 12.8 % N 11.7-14.4 Mean Platelet Volume 12.3 fL N 8.9-12.4 Liver Function Panel 01/19/2018 [facility] Total Protein 7.9 g/dL N 6.4-8.2 [phone] Albumin 4.0 g/dL N 3.4-5.0 Globulin 3.9 g/dL N 1.9-4.3 Alb/Glob 1.0 ratio Bilirubin,Total 0.6 mg/dL N 0.2-1.0 Bilirubin,Direct 0.2 mg/dL N 0.0-0.2 Bilirubin,Indirect 0.4 mg/dL N 0.0-0.9 Sgot/Ast 19 U/L N 15-37 SGPT/Alt 21 U/L N 12-78 Alkaline Phosphatase 78 U/L N 45-117 Basic Metabolic Panel 07/28/2017 [facility] Glucose 110 mg/dL High 74-106 12 [phone] BUN 11 mg/dL N 7-18 Creatinine 0.8 mg/dL N 0.6-1.3 Glom Filtration Rate, Estimate >60 mL/min >60 If >60 mL/min >60 13 BUN/Creat 13.7 ratio Sodium 142 mmol/L N 136-145 Potassium 3.9 mmol/L N 3.5-5.1 Chloride 108 mmol/L High 98-107 Carbon Dioxide 25 mmol/L N 21-32 Anion Gap 9 mEq/L N 8-16 Calcium 9.5 mg/dL N 8.5-10.1 CBC No Diff 07/28/2017 [facility] White Blood Count 5.9 K/uL N 3.1- 10.7 [phone] Red Blood Count 4.19 M/uL N 3.90-5.40 Hemoglobin 13.6 gm/dL N 11.6-15.8 Hematocrit 40.2 % N 36.0-46.1 Mean Cell Volume 95.9 fl N 80.9-99.0 Mean Corpuscular HGB 32.5 pg N 25.9-32.7 Mean Corpuscular HGB Conc 33.8 g/dL N 30.8-34.3 Platelet Count 304 K/uL N 150-400 Red Cell Distri Width %CV 12.6 % N 11.7-14.4 Mean Platelet Volume 12.1 fL N 8.9-12.4 Lipid Profile 07/28/2017 [facility] Cholesterol 198 mg/dL <200 14 (Trig/Chol/HDL) [phone] Triglycerides 296 mg/dL High <150 15 HDL Cholesterol 39 mg/dL Low >40 16 LDL-Cholesterol 100 mg/dL < 100 17 Liver Function Panel 07/28/2017 [facility] Total Protein 7.5 g/dL N 6.4-8.2 [phone] Albumin 3.7 g/dL N 3.4-5.0 Globulin 3.8 g/dL N 1.9-4.3 Alb/Glob 1.0 ratio Bilirubin,Total 0.6 mg/dL N 0.2-1.0 Bilirubin,Direct 0.2 mg/dL N 0.0-0.2 Bilirubin,Indirect 0.4 mg/dL N 0.0-0.9 Sgot/Ast 22 U/L N 15-37 SGPT/Alt 39 U/L N 12-78 Alkaline Phosphatase 79 U/L N 45-117 Xray 02/10/2017 [facility] Dexa scan <pending> [address] [place] [address] [phone] Xray 02/07/2017 [facility] bilateral <pending> [address] [place] [address] [phone] Basic Metabolic 10/14/2016 [facility] Glucose 108 mg/dL High 74- 106 18 Panel [phone] BUN 11 mg/dL N 7-18 Creatinine 0.8 mg/dL N 0.6-1.3 Glom Filtration Rate, Estimate >60 mL/min N >60 If >60 mL/min N >60 19 BUN/Creat 13.7 ratio N Sodium 142 mmol/L N 136-145 Potassium 3.8 mmol/L N 3.5-5.1 Chloride 109 mmol/L High 98-107 Carbon Dioxide 24 mmol/L N 21-32 Anion Gap 9 mEq/L N 8-16 Calcium 8.8 mg/dL N 8.5-10.1 CBC No Diff 10/14/2016 [facility] White Blood Count 5.7 K/uL N 3.1- 10.7 [phone] Red Blood Count 4.28 M/uL N 3.90-5.40 Hemoglobin 13.6 gm/dL N 11.6-15.8 Hematocrit 41.2 % N 36.0-46.1 Mean Cell Volume 96.3 fl N 80.9-99.0 Mean Corpuscular HGB 31.8 pg N 25.9-32.7 Mean Corpuscular HGB Conc 33.0 g/dL N 30.8-34.3 Platelet Count 290 K/uL N 155-360 Red Cell Distri Width %CV 12.8 % N 11.7-14.4 Mean Platelet Volume 13.1 fL High 8.9-12.4 Lipid Profile 10/14/2016 [facility] Cholesterol 187 mg/dL N <200 20 (Trig/Chol/HDL) [phone] Triglycerides 282 mg/dL High <150 21 HDL Cholesterol 41 mg/dL N >40 22 LDL-Cholesterol 90 mg/dL N < 100 23 Liver Function Panel 10/14/2016 [facility] Total Protein 7.5 g/dL N 6.4-8.2 [phone] Albumin 3.9 g/dL N 3.4-5.0 Globulin 3.6 g/dL N 1.9-4.3 Alb/Glob 1.1 ratio N Bilirubin,Total 0.6 mg/dL N 0.2-1.0 Bilirubin,Direct 0.1 mg/dL N 0.0-0.2 Bilirubin,Indirect 0.5 mg/dL N 0.0-0.9 Sgot/Ast 16 U/L N 15-37 SGPT/Alt 27 U/L N 12-78 Alkaline Phosphatase 71 U/L N 45-117 Basic Metabolic Panel 01/08/2016 [facility] Glucose 111 mg/dL High 74-106 [phone] BUN 11 mg/dL 7-18 Creatinine 0.8 mg/dL 0.6-1.3 Glom Filtration Rate, Estimate >60 mL/min >60 If >60 mL/min >60 24 BUN/Creat 13.7 ratio Sodium 143 mmol/L 136-145 Potassium 3.7 mmol/L 3.5-5.1 Chloride 107 mmol/L 98-107 Carbon Dioxide 25 mmol/L 21-32 Anion Gap 11 mEq/L 8-16 Calcium 9.0 mg/dL 8.5-10.1 CBC W/Automated Diff 01/08/2016 [facility] White Blood 4.9 K/uL 3.1-10.7 [phone] Count Red Blood Count 4.18 M/uL 3.90-5.40 [...] % 40.4-72.8 Lymph % 33.5 % 17.0-46.1 Gulf % 8.0 % 4.3-13.2 Eo% 3.5 % 0.0-6.6 Bas% 0.6 % 0.0-1.1 Neut# 2.67 K/uL 1.8-7.0 Lymph # 1.64 K/uL Low 1.8-7.0 Gulf # 0.39 K/uL 0.3-0.9 Eos # 0.17 K/uL 0.0-0.5 Baso # 0.03 K/uL 0.0-0.1 LDL Cholesterol Profile 01/08/2016 [facility] Cholesterol 199 mg/dL <200 25 [phone] Triglycerides 299 mg/dL High <150 26 HDL Cholesterol 34 mg/dL Low >40 27 LDL-Cholesterol 105 mg/dL < 100 28 Liver Function Tests 01/08/2016 [facility] Total Protein 7.5 g/dL 6.4-8.2 [phone] Albumin 3.9 g/dL 3.4-5.0 Globulin 3.6 g/dL 1.9-4.3 Alb/Glob 1.1 ratio Bilirubin,Total 0.6 mg/dL 0.2-1.0 Bilirubin,Direct 0.1 mg/dL 0.0-0.2 Bilirubin,Indirect 0.5 mg/dL 0.0-0.9 Sgot/Ast 22 U/L 15-37 SGPT/Alt 39 U/L 12-78 Alkaline Phosphatase 77 U/L 45-117 Basic Metabolic Panel 01/09/2015 [facility] Glucose 101 mg/dL 74- 106 [phone] BUN 12 mg/dL 7-18 Creatinine 0.9 mg/dL 0.6-1.3 Glom Filtration Rate, Estimate >60 mL/min >60 If >60 mL/min >60 29 BUN/Creat 13.3 ratio Sodium 144 mmol/L 136-145 Potassium 3.7 mmol/L 3.5-5.1 Chloride 111 mmol/L High 98-107 Carbon Dioxide 26 mmol/L 21-32 Anion Gap 7 mEq/L Low 8-16 Calcium 8.6 mg/dL 8.5-10.1 Liver Function Tests 01/09/2015 [facility] Total Protein 7.1 g/dL 6.4-8.2 [phone] Albumin 3.8 g/dL 3.4-5.0 Globulin 3.3 g/dL 1.9-4.3 Alb/Glob 1.2 ratio Bilirubin,Total 0.7 mg/dL 0.2-1.0 Bilirubin,Direct 0.2 mg/dL 0.0-0.2 Bilirubin,Indirect 0.5 mg/dL 0.0-0.9 Sgot/Ast 15 U/L 15-37 SGPT/Alt 28 U/L 12-78 Alkaline Phosphatase 75 U/L 45-117 LDL Cholesterol Profile 01/09/2015 [facility] Cholesterol 165 mg/dL < 200 30 [phone] Triglycerides 216 mg/dL < 150 31 HDL Cholesterol 35 mg/dL > 40 32 LDL-Cholesterol 87 mg/dL < 100 33 Basic Metabolic Panel 09/05/2014 [facility] Glucose 104 mg/dL 74- 106 [phone] BUN 13 mg/dL 7-18 Creatinine 0.8 mg/dL 0.6-1.3 Glom Filtration Rate, Estimate >60 mL/min >60 If >60 mL/min >60 34 BUN/Creat 16.2 ratio Sodium 142 mmol/L 136-145 Potassium 3.9 mmol/L 3.5-5.1 Chloride 108 mmol/L High 98-107 Carbon Dioxide 28 mmol/L 21-32 Anion Gap 10 mEq/L 8-16 Calcium 9.1 mg/dL 8.5-10.1 LDL Cholesterol Profile 09/05/2014 [facility] Cholesterol 204 mg/dL 35 [phone] Triglycerides 311 mg/dL 36 HDL Cholesterol 37 mg/dL 37 LDL-Cholesterol 105 mg/dL 38 Liver Function Tests 09/05/2014 [facility] Total Protein 7.6 g/dL 6.4-8.2 [phone] Albumin 3.9 g/dL 3.4-5.0 Globulin 3.7 g/dL 1.9-4.3 Alb/Glob 1.1 ratio Bilirubin,Total 0.5 mg/dL 0.2-1.0 Bilirubin,Direct 0.1 mg/dL 0.0-0.2 Bilirubin,Indirect 0.4 mg/dL 0.0-0.9 Sgot/Ast 15 U/L 15-37 SGPT/Alt 28 U/L 12-78 Alkaline Phosphatase 73 U/L 45-117 Laboratory test 09/05/2014 [facility] CK-MB (Mass) 0.9 ng/ml 0.5- 3.6 finding [phone] LDL Cholesterol 06/13/2014 [facility] Cholesterol 188 mg/dL 120- 200 Profile [phone] Triglycerides 206 mg/dL 16-231 HDL Cholesterol 38 mg/dL 29-83 LDL-Cholesterol 109 mg/dL 62-185 Liver Function Tests 06/13/2014 [facility] Total Protein 7.6 g/dL 6.3-8.0 [phone] Albumin 3.8 g/dL 3.5-5.0 Globulin 3.8 g/dL 1.9-4.3 Alb/Glob 1.0 ratio Bilirubin,Total 0.7 mg/dL 0.2-1.2 Bilirubin,Direct 0.1 mg/dL 0.1-0.4 Bilirubin,Indirect 0.6 mg/dL 0.0-0.9 Sgot/Ast 16 U/L 16-40 SGPT/Alt 32 U/L 30-65 Alkaline Phosphatase 79 U/L 50-136 Comprehensive Metabolic 05/23/2014 [facility] Glucose 112 mg/dL 76 -115 Panel [phone] BUN 15 mg/dL 5-23 Creatinine 0.7 mg/dL 0.5-1.4 Glom Filtration Rate, Estimate >60 mL/min >60 If >60 mL/min >60 39 BUN/Creat 21.4 ratio Sodium 138 mmol/L 136-145 Potassium 3.7 mmol/L 3.5-5.1 Chloride 106 mmol/L 98-107 Carbon Dioxide 25 mEq/L 18-29 Anion Gap 11 mEq/L 8-16 Calcium 9.1 mg/dL 8.5-10.1 Total Protein 7.7 g/dL 6.3-8.0 Albumin 3.9 g/dL 3.5-5.0 Globulin 3.8 g/dL 1.9-4.3 Alb/Glob 1.0 ratio Bilirubin,Total 0.4 mg/dL 0.2-1.2 Sgot/Ast 16 U/L 16-40 SGPT/Alt 28 U/L Low 30-65 Alkaline Phosphatase 83 U/L 50-136 Laboratory test finding 05/23/2014 [facility] CK 75 U/L 26-190 [phone] Troponin-I < 0.02 ng/mL 0.00-0.50 40 CBC W/Automated Diff 05/23/2014 [facility] White Blood 6.5 K/uL 3.1-10.7 [phone] Count Red Blood Count 4.09 M/uL 3.90-5.40 [...] % 40.4-72.8 Lymph % 32.1 % 17.0-46.1 Gulf % 7.5 % 4.3-13.2 Eo% 1.7 % 0.0-6.6 Bas% 0.8 % 0.0-1.1 Neut# 3.78 K/uL 1.0-7.0 Lymph # 2.09 K/uL 0.8-3.4 Gulf # 0.49 K/uL 0.3-0.9 Eos # 0.11 K/uL 0.0-0.5 Baso # 0.05 K/uL 0.0-0.1 Laboratory test 05/23/2014 [facility] D-Dimer, < 0.22 ug/mL 41 finding [phone] Quantitative Thyroid Stim Hormone 1.76 uIU/mL 0.49-4.67 LDL Cholesterol Profile 04/06/2014 [facility] Cholesterol 193 mg/dL 120-200 [phone] Triglycerides 238 mg/dL High 16-231 HDL Cholesterol 38 mg/dL 29-83 LDL-Cholesterol 107 mg/dL 62-185 Xray 01/24/2014 [facility] [address] bilateral <pending> [address] [place] [address] mammogram [phone] Xray 01/24/2014 [facility] dexa scan <pending> Laboratory test 01/17/2014 [facility] ThinPrep Pap: See Note 42 finding [phone] Cervix/Endocx Liver Function 01/05/2014 [facility] Total Protein 7.7 g/dL 6.3- 8. Tests [phone] Albumin 3.9 g/dL 3.5-5.0 Globulin 3.8 g/dL 1.9-4.3 Alb/Glob 1.0 ratio Bilirubin,Total 0.5 mg/dL 0.2-1.2 Bilirubin,Direct 0.1 mg/dL 0.1-0.4 Bilirubin,Indirect 0.4 mg/dL 0.0-0.9 Sgot/Ast 20 U/L 16-40 SGPT/Alt 27 U/L Low 30-65 Alkaline Phosphatase 90 U/L 50-136 Basic Metabolic Panel 01/05/2014 [facility] Glucose 104 mg/dL 76- 115 [phone] BUN 13 mg/dL 5-23 Creatinine 0.7 mg/dL 0.5-1.4 Glom Filtration Rate, Estimate >60 mL/min >60 If >60 mL/min >60 43 BUN/Creat 18.5 ratio Sodium 139 mmol/L 136-145 Potassium 4.0 mmol/L 3.5-5.1 Chloride 109 mmol/L High 98-107 Carbon Dioxide 24 mEq/L 18-29 Anion Gap 10 mEq/L 8-16 Calcium 8.9 mg/dL 8.5-10.1 LDL Cholesterol Profile 01/05/2014 [facility] Cholesterol 199 mg/dL 120-200 [phone] Triglycerides 208 mg/dL 16-231 HDL Cholesterol 38 mg/dL 29-83 LDL-Cholesterol 119 mg/dL 62-185 LDL Cholesterol Profile 07/05/2013 [facility] Cholesterol 144 mg/dL 120-200 [phone] Triglycerides 109 mg/dL 16-231 HDL Cholesterol 43 mg/dL 29-83 LDL-Cholesterol 79 mg/dL 62-185 Calculi,Urinary,With Photo 07/02/2013 [facility] Color [place] . [phone] Size 5x4x3 mm . Weight 30.0 mg . Composition See Note 44 Ca Oxalate,Dihydrate 05 % . Ca Oxalate,Monohydrate 05 % . Calcium Phosphate 90 % . Nidus See Note . 45 CBC 06/30/2013 [facility] White Blood Count 7.9 K/uL 3.1-10.7 [phone] Red Blood Count 4.31 M/uL 3.90-5.40 Hemoglobin 13.6 gm/dL 11.6-15.8 Hematocrit 41.2 % 36.0-46.1 Mean Cell Volume 95.6 fl 80.9-99.0 Mean Corpuscular HGB 31.6 pg 25.9-32.7 Mean Corpuscular HGB Conc 33.0 g/dL 30.8-34.3 Platelet Count 354 K/uL 155-360 Red Cell Distri Width %CV 12.7 % 11.7-14.4 Mean Platelet Volume 12.1 fL 8.9-12.4 Basic Metabolic Panel 06/30/2013 [facility] Glucose 89 mg/dL 76- 115 [phone] BUN 9 mg/dL 5-23 Creatinine 0.7 mg/dL 0.5-1.4 Glom Filtration Rate, Estimate >60 mL/min >60 If >60 mL/min >60 46 BUN/Creat 12.8 ratio Sodium 139 mmol/L 136-145 Potassium 3.9 mmol/L 3.5-5.1 Chloride 106 mmol/L 98-107 Carbon Dioxide 24 mEq/L 18-29 Anion Gap 13 mEq/L 8-16 Calcium 9.5 mg/dL 8.5-10.1 Urine Screen 06/30/2013 [facility] Urine Color YELLOW Yellow [phone] Urine Clarity CLEAR Clear Urine Glucose - Dipstick NEGATIVE mg/dL Negative Urine Bilirubin - Dipstick NEGATIVE Negative Urine Ketone NEGATIVE mg/dL Negative Urine Specific [place] <=1.005 Low 1.010-1.030 Urine Blood NEGATIVE Negative Urine PH 6.0 Low 6.5-7.5 Urine Protein - Dipstick NEGATIVE mg/dL Negative Urine Urobilinogen - Dipstick 0.2 E.U./dL 0.2-1.0 Urine Nitrite - Dipstick NEGATIVE Negative Urine Leuk Esterase NEGATIVE Negative Liver Function Tests 01/04/2013 [facility] Total Protein 7.6 g/dL 6.3-8.0 [phone] Albumin 4.1 g/dL 3.5-5.0 Globulin 3.5 g/dL 1.9-4.3 Alb/Glob 1.2 ratio Bilirubin,Total 0.7 mg/dL 0.2-1.2 Bilirubin,Direct 0.1 mg/dL 0.1-0.4 Bilirubin,Indirect 0.6 mg/dL 0.0-0.9 Sgot/Ast 15 U/L Low 16-40 SGPT/Alt 29 U/L Low 30-65 Alkaline Phosphatase 94 U/L 50-136 LDL Cholesterol Profile 01/04/2013 [facility] Cholesterol 193 mg/dL 120-200 [phone] Triglycerides 224 mg/dL 16-231 HDL Cholesterol 41 mg/dL 29-83 LDL-Cholesterol 107 mg/dL 62-185 1 Face Cleaner: [id number] SEE RESULT BELOW Name: KATARZYNA GARZA : [address]: Romel Tabor MD Acct: [id number] Unit: [id number] AGE: 73 Location: [facility] Re08/31/18 SEX: F Status: DEP ER SPEC: [id number] SASHA: 08/31/[address] [facility] [address]: Romel Tabor MD REQ: [id number] RECD: 08/31/18 STATUS: SOPHIA WILDE DR: Laxmi SOLIS [facility] _ SOURCE: URINE SPDESC: ORDERED: Urine Culture COMMENTS: [id number] Procedure Result Reported Site Urine Culture Final 09/02/18- 0759 ML Organism 1 ESCHERICHIA COLI [place] Count 10-25,000 (Moderate) CFU/ML 1. ESCHERICHIA COLI [facility].I.[facility]. RX --------- ------ Ampicillin <=2 S Cefazolin <=4 S Cefepime <=1 S Ceftriaxone <=1 S Ciprofloxacin <=0.25 S Gentamicin <=1 S Levofloxacin <=0.12 S Meropenem <=0.25 S Nitrofurantoin <=16 S Tetracycline <=1 S Pipercillin/Tazobactam <=4 S Trimethoprim/Sulfamethoxazole <=20 S Amoxicillin/Clavulanic Acid <=2 S Aztreonam <=1 S Contact the Microbiology Department for any additional antibiotic reporting. * [facility] - Main Lab . END OF REPORT DEPARTMENT OF PATHOLOGY, [address] [place] [address] Saman Diallo M.D. Director [facility] # [id number] 4 E78.5,I.10 5 Note: Persistent reduction for 3 months or more in an eGFR <60 mL/min/1.73 m2 defines CKD. Patients with eGFR values >/=60 mL/min/1.73 m2 may also have CKD if evidence of persistent proteinuria is present. The original MDRD equation for estimated GFR is not valid for patients less than 18 years of age. Additional information may be found at www.kdoqi.org. 6 Reference Guidelines*: Desirable: ........... < 200 mg/dL Borderline High: ..... 200-239 mg/dL High: ................ >=240 mg/dL * The National Cholesterol Education Program (NCEP) 7 Reference Guidelines*: Normal: ............. < 150 mg/dL Borderline High: .... 150-199 mg/dL High: ............... 200-499 mg/dL Very High: .......... > 500 mg/dL * Source: National Cholesterol Education Program (NCEP) 8 Reference Guidelines*: Low HDL: ..... < 40 mg/dL Normal: ..... 40-60 mg/dL Desirable: ... > 60 mg/dL *The National Cholesterol Education Program(NCEP) 9 Reference Guidelines*: Optimal:........... <100 mg/dL Near Optimal....... 100-129 mg/dL Borderline High.... 130-159 mg/dL High............... 160-189 mg/dL Very High.......... >=190 mg/dL * Source: National Cholesterol Education Program (NCEP) 10 M19.90 K21.0 M19.90 I10 11 Note: Persistent reduction for 3 months or more in an eGFR <60 mL/min/1.73 m2 defines CKD. Patients with eGFR values >/=60 mL/min/1.73 m2 may also have CKD if evidence of persistent proteinuria is present. The original MDRD equation for estimated GFR is not valid for patients less than 18 years of age. Additional information may be found at [email or web address]. 12 E78.5,I10,K21.0 13 Note: Persistent reduction for 3 months or more in an eGFR <60 mL/min/1.73 m2 defines CKD. Patients with eGFR values >/=60 mL/min/1.73 m2 may also have CKD if evidence of persistent proteinuria is present. The original MDRD equation for estimated GFR is not valid for patients less than 18 years of age. Additional information may be found at [email or web address]. 14 Reference Guidelines*: Desirable: ........... < 200 mg/dL Borderline High: ..... 200-239 mg/dL High: ................ >=240 mg/dL * The National Cholesterol Education Program (NCEP) 15 Reference Guidelines*: Normal: ............. < 150 mg/dL Borderline High: .... 150-199 mg/dL High: ............... 200-499 mg/dL Very High: .......... > 500 mg/dL * Source: National Cholesterol Education Program (NCEP) 16 Reference Guidelines*: Low HDL: ..... < 40 mg/dL Normal: ..... 40-60 mg/dL Desirable: ... > 60 mg/dL *The National Cholesterol Education Program(NCEP) 17 Reference Guidelines*: Optimal:........... <100 mg/dL Near Optimal....... 100-129 mg/dL Borderline High.... 130-159 mg/dL High............... 160-189 mg/dL Very High.......... >=190 mg/dL * Source: National Cholesterol Education Program (NCEP) 18 E78.5,M67.40,K21.0,I10 19 Note: Persistent reduction for 3 months or more in an eGFR <60 mL/min/1.73 m2 defines CKD. Patients with eGFR values >/=60 mL/min/1.73 m2 may also have CKD if evidence of persistent proteinuria is present. The original MDRD equation for estimated GFR is not valid for patients less than 18 years of age. Additional information may be found at [email or web address]. 20 Reference Guidelines*: Desirable: ........... < 200 mg/dL Borderline High: ..... 200-239 mg/dL High: ................ >=240 mg/dL * The National Cholesterol Education Program (NCEP) 21 Reference Guidelines*: Normal: ............. < 150 mg/dL Borderline High: .... 150-199 mg/dL High: ............... 200-499 mg/dL Very High: .......... > 500 mg/dL * Source: National Cholesterol Education Program (NCEP) 22 Reference Guidelines*: Low HDL: ..... < 40 mg/dL Normal: ..... 40-60 mg/dL Desirable: ... > 60 mg/dL *The National Cholesterol Education Program(NCEP) 23 Reference Guidelines*: Optimal:........... <100 mg/dL Near Optimal....... 100-129 mg/dL Borderline High.... 130-159 mg/dL High............... 160-189 mg/dL Very High.......... >=190 mg/dL * Source: National Cholesterol Education Program (NCEP) 24 Note: Persistent reduction for 3 months or more in an eGFR <60 mL/min/1.73 m2 defines CKD. Patients with eGFR values >/=60 mL/min/1.73 m2 may also have CKD if evidence of persistent proteinuria is present. The original MDRD equation for estimated GFR is not valid for patients less than 18 years of age. Additional information may be found at www.kdoqi.org. 25 Reference Guidelines*: Desirable: ........... < 200 mg/dL Borderline High: ..... 200-239 mg/dL High: ................ >=240 mg/dL * The National Cholesterol Education Program (NCEP) 26 Reference Guidelines*: Normal: ............. < 150 mg/dL Borderline High: .... 150-199 mg/dL High: ............... 200-499 mg/dL Very High: .......... > 500 mg/dL * Source: National Cholesterol Education Program (NCEP) 27 Reference Guidelines*: Low HDL: ..... < 40 mg/dL Normal: ..... 40-60 mg/dL Desirable: ... > 60 mg/dL *The National Cholesterol Education Program(NCEP) 28 Reference Guidelines*: Optimal:........... <100 mg/dL Near Optimal....... 100-129 mg/dL Borderline High.... 130-159 mg/dL High............... 160-189 mg/dL Very High.......... >=190 mg/dL * Source: National Cholesterol Education Program (NCEP) 29 Note: Persistent reduction for 3 months or more in an eGFR <60 mL/min/1.73 m2 defines CKD. Patients with eGFR values >/=60 mL/min/1.73 m2 may also have CKD if evidence of persistent proteinuria is present. The original MDRD equation for estimated GFR is not valid for patients less than 18 years of age. Additional information may be found at www.kdoqi.org. 30 Reference Guidelines*: Desirable: ........... < 200 mg/dL Borderline High: ..... 200-239 mg/dL High: ................ >=240 mg/dL * The National Cholesterol Education Program (NCEP) 31 Reference Guidelines*: Normal: ............. < 150 mg/dL Borderline High: .... 150-199 mg/dL High: ............... 200-499 mg/dL Very High: .......... > 500 mg/dL * Source: National Cholesterol Education Program (NCEP) 32 Reference Guidelines*: Low HDL: ..... < 40 mg/dL Normal: ..... 40-60 mg/dL Desirable: ... > 60 mg/dL *The National Cholesterol Education Program(NCEP) 33 Reference Guidelines*: Optimal:........... <100 mg/dL Near Optimal....... 100-129 mg/dL Borderline High.... 130-159 mg/dL High............... 160-189 mg/dL Very High.......... >=190 mg/dL * Source: National Cholesterol Education Program (NCEP) 34 Note: Persistent reduction for 3 months or more in an eGFR <60 mL/min/1.73 m2 defines CKD. Patients with eGFR values >/=60 mL/min/1.73 m2 may also have CKD if evidence of persistent proteinuria is present. The original MDRD equation for estimated GFR is not valid for patients less than 18 years of age. Additional information may be found at www.kdoqi.org. 35 Reference Guidelines*: Desirable: ........... < 200 mg/dL Borderline High: ..... 200-239 mg/dL High: ................ >=240 mg/dL * The National Cholesterol Education Program (NCEP) 36 Reference Guidelines*: Normal: ............. < 150 mg/dL Borderline High: .... 150-199 mg/dL High: ............... 200-499 mg/dL Very High: .......... > 500 mg/dL * Source: National Cholesterol Education Program (NCEP) 37 Reference Guidelines*: Low HDL: ..... < 40 mg/dL Normal: ..... 40-60 mg/dL Desirable: ... > 60 mg/dL *The National Cholesterol Education Program(NCEP) 38 Reference Guidelines*: Optimal:........... <100 mg/dL Near Optimal....... 100-129 mg/dL Borderline High.... 130-159 mg/dL High............... 160-189 mg/dL Very High.......... >=190 mg/dL * Source: National Cholesterol Education Program (NCEP) 39 Note: Persistent reduction for 3 months or more in an eGFR <60 mL/min/1.73 m2 defines CKD. Patients with eGFR values >/=60 mL/min/1.73 m2 may also have CKD if evidence of persistent proteinuria is present. The original MDRD equation for estimated GFR is not valid for patients less than 18 years of age. Additional information may be found at www.kdoqi.org. 40 0 - 0.5 ng/mL: No evidence of myocardial injury 0.6 - 1.4 ng/mL: Mild elevation, suggesting possible myocardial injury > 1.4 ng/mL: Consistent with myocardial injury 41 <=0.49 ug/mL - Low likelihood of DIC, DVT or Pulmonary Embolism >0.49 ug/mL - Additional testing should be done to rule out DIC, DVT, or Pulmonary embolism as clinically indicated. ([facility] has established a 97.89% negative predictive value for thrombotic disease when a cutoff value of 0.5 ug/mL is used.) 42 CYTOLOGY SCREENER - MEDICAL OFFICE COORDINATOR @ 12/28 Screened by: Garima ROCKWELL(ASCP) PAP: FINAL REPORT SPECIMEN ADEQUACY: SPECIMEN SATISFACTORY FOR INTERPRETATION ADEQUATE ENDOCERVICAL/TRANSFORMATION ZONE NOTED INTERPRETATION: NEGATIVE FOR INTRAEPITHELIAL LESION OR MALIGNANCY COMMENT: ATROPHIC PATTERN THINPREP PREPARED PAP SLIDE # Prepared in the Cytology laboratory from the ThinPrep sample is 1 ThinPrep smear. PAP ACCESSI QUESTIONNAIRE 11/26 PERTINENT CLINICAL HISTORY FOR PAP (MEDICAL OFFICE COORDINATOR) CYTOLOGY (Check all that apply): ? Post ? Menopause? Y LMP date: AGE 48 Last Pap: at [facility]? Y Abnormal Pap? N If Yes, date: [...] means for detecting cervical dysplasia and carcinoma. GARIMA Villagran 01/19/14 1322 43 Note: Persistent reduction for 3 months or more in an eGFR <60 mL/min/1.73 m2 defines CKD. Patients with eGFR values >/=60 mL/min/1.73 m2 may also have CKD if evidence of persistent proteinuria is present. The original MDRD equation for estimated GFR is not valid for patients less than 18 years of age. Additional information may be found at www.kdoqi.org. 44 Percentage (Represents the % composition) 45 No Nidus visualized Photograph will follow under separate cover. Physician questions regarding [employer] Analysis contact [employer] at: [phone]. Calculi report with photograph will follow via computer, mail or retail sales teammate delivery. Performed at: [address] [id number] [place]: Cale Wilson MD, Phone: [phone] 46 Note: Persistent reduction for 3 months or [...] [email or web address]. Procedures Date Code Description Status 02/13/2018 [id number] Mammogram Completed 06/19/2015 [id number] Colonoscopy Completed 06/20/2014 30319 Oximetry For Oxygen,Single Determ Completed 01/17/2014 40809 EKG Completed 06/13/2009 72992 Snellen Only Vison Completed 05/30/2009 26844 Hearing Test Completed Encounters Type Date Location Provider Dx Diagnosis Office Visit 11/03/2018 8:45a Main Office Laxmi Maza PA I10 Essential ( primary) hypertension E78.5 Hyperlipidemia, unspecified K21.0 Gastro-esophageal reflux disease with esophagitis M19.90 Unspecified osteoarthritis, unspecified site Office Visit 08/04/2018 8:30a Main Office Laxmi [...] PA Office Visit 08/17/2012 1:00p Main Office Harini, 786.05 Shortness Of Breath Kobi A PA 272.0 Hypercholesterolemia Pure Office Visit 08/03/2012 1:30p Main Office Harini Kobi 786.05 Shortness Of A PA Breath 300.00 [...] Main Office Laxmi Maza PA V72.31 Routine Help Aid Examination Office Visit 05/30/2009 1:30p Main Office [...] 386.30 Labyrinthitis Unspec Plan of Treatment Future Appointment(s):01/28/2019 8:30 am - Laxmi Maza PA at [id number] - Laxmi Maza PAI10 Essential (primary) [id number] Hyperlipidemia, unspecifiedNew Labs:Basic Metabolic Panel, Ordered: 11/03/18Lipid Profile (Trig/ Chol/HDL), Ordered: 11/03/18Liver Function Panel, Ordered: 11/03/18ollow up: [id number] Gastro-esophageal reflux disease with [id number] Unspecified osteoarthritis, unspecified site
[2018-11-18 09:40] VITALS: BP 186/75
--- NOTE | 2018-11-18 10:22 | UC ---
Back Pain HPI - HPI Summary HPI Summary: Pt presents with 6 day of pain in right lower back. pain worse with walking and standing. improved with sitting and lying . Pt denies direct trauma. States did start to feel after shoveling and prolonged standing in kitchen over the holidays No direct trauma, no fall. Pt denies paresthesia. No change bowel/ bladder. Pt states does feel better following hot shower. Pt without h/o similar. No edema, ecchymosis. Pt takes equate tylenol 2 times a day and has take 200mg motrin twice daily with mild improvement. Unable to get into PCP today. No to other complaints. No abdominal pain, urinary symptoms pts medications reviewed this visit - History of Current Complaint Chief Complaint: UCBackPain Stated Complaint: RIGHT SIDE LOWER BACK PAIN Time Seen by Provider: 11/18/18 09:25 Hx Obtained From: Patient ?: No Onset/Duration: Gradual Onset, Lasting Days Pain Intensity: 6 - Allergies/Home Medications Allergies/Adverse Reactions: Allergies Allergy/AdvReac Type Severity Reaction Status Date / Time rosuvastatin [From Crestor] Allergy Severe Joint Pain Verified 11/18/18 09:41 amoxicillin Allergy Intermediate Dizziness Verified 11/18/18 09:41 Home Medications: Home Medications Equate Arthritis Pain Med 1,300 mg PO BID 11/18/18 [History Confirmed 11/18/18] Ibuprofen TAB* [Advil TAB*] 200 mg PO BID 11/18/18 [History Confirmed 11/18/18] Pravastatin Sodium [Pravachol] 80 mg PO DAILY 11/18/18 [History Confirmed ] PMH/Surg Hx/FS Hx/Imm Hx Previously Healthy: Yes - Surgical History Surgical History: Yes Surgery Procedure, Year, and Place: mole removal from back - Family History Known Family History: Positive: Cardiac Disease, Hypertension, Non-Contributory - Social History Occupation: Retired Alcohol Use: Rare Substance Use Type: None Smoking Status (MU): Former Smoker Type: Cigarettes When Did the Patient Quit Smoking/Using Tobacco: 23 YRS AGO Review of Systems All Other Systems Reviewed And Are Negative: Yes Constitutional: Positive: Negative Skin: Positive: Negative Eyes: Positive: Negative ENT: Positive: Negative Gastrointestinal: Positive: Negative Genitourinary: Positive: Negative Musculoskeletal: Positive: Other: - right low back pain Physical Exam - Summary Physical Exam Summary: Vital Signs Reviewed: Yes A+Ox3, no distress Eyes: Conjunctiva Clear, JIMMIE. EOM intact and full ENT: Hearing grossly normal TM x 2 clear, mmoist, uvula midline, no exudate, no erythema Neck: Positive: Supple Respiratory: Positive: No respiratory distress, No accessory muscle use + CTA throughout no w/r Cardiovascular: RRR nl s1, s2 no m/r CBT <2 sec abd soft + BS nt/nd no guarding, no distension no cva b/l Musculoskeletal Exam: No spinous process pain c/t/l/s + TTP right paraspinal distal right lumbar area + Point tenderness and palpable spasm + SLE b/l without dfficulty - t states feels in right low back however +flex/ext knee, ankle. + abduction + external rotation withotu hip pain on right Neurological: Positive: Alert, + sensation throughout 2+ withotu clonus patellar and achilles b/l + gross sensation throughotu b/l LE Psychological: Positive: Normal Response To Family Skin: Positive: no rash, no ecchymosis Triage Information Reviewed: Yes Vital Signs: Initial Vital Signs Temp 97.8 F 11/18/18 09:27 Pulse 69 11/18/18 09:27 Resp 20 11/18/18 09:27 BP 186/75 11/18/18 09:27 Pulse Ox 99 11/18/18 09:27 Back Pain Course/Dx - Course Course Of Treatment: Pt with discomfort right low lumbar paraspinal pain. worse with direct palp and ROM. distal cSM intact and fulls. suspect muscle spasm. recommend increaing motrin/apap with food. heat. stretch. schedule recheck with pcp. pt declined muscle relaxant. PT referral. pt comfortable and bianca greement with plan. strict return precautions. pt with elevated BP - in discomfort- recommend pcp recheck - Differential Dx/Diagnosis Provider Diagnosis: Lumbar paraspinal muscle spasm Discharge - Sign-Out/Discharge Documenting (check all that apply): Patient Departure All imaging exams completed and their final reports reviewed: No Studies - Discharge Plan Condition: Stable Disposition: HOME Patient Education Materials: Low Back Strain (ED), Muscle Spasm (ED), Lower Back Exercises (ED) Referrals: Laxmi Maza PA [Primary Care Provider] - Additional Instructions: You have to check your Equate Arthritis pain medication - it this is acetaminophen - okay to continue taking as prescribed It is recommended you increase your ibuprofen (Advil, Motrin) to 400mg 3 times a day - take with food - do NOT take for more than 4-5 days Apply moist heat to your back for 20 minutes at a time, 4-5 times a day. Once your muscles are warm, slow gentle stretching exercises are important Contact your doctor today to arrange a follow-up appointment on Friday. You have also been given a referral to physical therapy - okay to call for an appointment Contact your doctor or go directly to the emergency department if you are unable to control your bowel or bladder, you have leg weakness, abdominal pain or any other questions or concerns - Billing Disposition and Condition Condition: STABLE Disposition: Home
== END 2018-11-18 10:55 | disposition home or self-care (01) ==
LOC: UCCORT 09:00
DX: M62.830 Muscle spasm of back (principal); Z88.0 Allergy status to penicillin; Z88.8 Allergy status to other drugs, medicaments and biological substances; Z87.891 Personal history of nicotine dependence
CPT/HCPCS: 81003; 87086; 99211; G0463

== ENCOUNTER 2019-01-26 10:31 | Emergency (ER) | payer MEDICARE, BC ==
--- NOTE | 2019-01-26 12:06 | UC ---
General HPI - HPI Summary HPI Summary: Patient states she woke up and felt slightly dizzy. Went to the dentist and toward the ends of the visit she began feeling dizzy. The apt lasted about 1/2 hour. After she got up she, she states she was off balance, ?LOC in the waiting room and split her left ear. Was able to walk to her car and drive to urgent care to have her ear evaluated. Upon arrival to patient room, patient became dizzy, nauseated and with some vision changes. Denies any numbness or tingling. No CP or SOB. Took her BP medication this AM. Ate breakfast and was feeling fine other than slightly dizzy. Meds: reviewed - History of Current Complaint Stated Complaint: LEFT EAR CONCERN Time Seen by Provider: 01/26/19 11:45 - Allergy/Home Medications Allergies/Adverse Reactions: Allergies Allergy/AdvReac Type Severity Reaction Status Date / Time rosuvastatin [From Crestor] Allergy Severe Joint Pain Verified 01/26/19 11:36 amoxicillin Allergy Intermediate Dizziness Verified 01/26/19 11:36 Home Medications: Home Medications Acetaminophen [Tylenol Extra Strength] 500 mg PO Q6H PRN 01/26/19 [History Confirmed 01/26/19] Cholecalciferol (Vitamin D3) [D3] 400 unit PO BID 01/26/19 [History Confirmed ] Meclizine HCl [Eql Motion Sickness Relie] 25 mg PO DAILY 01/26/19 [History Confirmed 01/26/19] Psyllium YU* [Metamucil YU*] 1 pkt PO DAILY 01/26/19 [History Confirmed ] PMH/Surg Hx/FS Hx/Imm Hx Previously Healthy: Yes Endocrine History: Dyslipidemia Cardiovascular History: Hypertension - Surgical History Surgical History: Yes Surgery Procedure, Year, and Place: mole removal from back - Family History Known Family History: Positive: Cardiac Disease, Hypertension, Non-Contributory - Social History Alcohol Use: Rare Substance Use Type: None Smoking Status (MU): Former Smoker Type: Cigarettes When Did the Patient Quit Smoking/Using Tobacco: 23 YRS AGO Review of Systems All Other Systems Reviewed And Are Negative: Yes Neurological: Positive: Other - dizziness Physical Exam Triage Information Reviewed: Yes Appearance: Other: - mild distress ENT: Positive: Other - right ear - bandage Neck: Positive: Supple Respiratory: Positive: Lungs clear, Normal breath sounds Cardiovascular: Positive: RRR, No Murmur Abdomen Description: Positive: Nontender Neurological: Positive: Other: - no focal deficits, did not walk her Course/Dx - Course Course Of Treatment: This is a 73 yr old who presented after feeling dizzy, off balance and likely syncopale event - now with recurrent dizziness and nausea found to have SBP >200. Assessment. Concern for HTN emergency, urgency. Head injury, Syncopal event. R/O CVA/TIA. Recommend patient go to a stroke center - She choose [facility] via [place]. EKG: NSR. Report given to Dr. Waters at [facility] - Diagnoses Provider Diagnosis: Hypertensive emergency Discharge - Sign-Out/Discharge Documenting (check all that apply): Patient Departure All imaging exams completed and their final reports reviewed: No Studies - Discharge Plan Condition: Guarded Disposition: TRANS HIGHER LVL OF CARE FAC Referrals: Laxmi Maza PA [Primary Care Provider] - Additional Instructions: Patient transferred to [facility] via EMS - Billing Disposition and Condition Condition: GUARDED Disposition: Trans Higher Lvl of Care Fac
[2019-01-26 12:27] VITALS: BP 000/01
== END 2019-01-26 12:29 | disposition short-term general hospital (02) ==
LOC: UCCORT 10:31
DX: I16.1 Hypertensive emergency (principal); I10 Essential (primary) hypertension; Z88.8 Allergy status to other drugs, medicaments and biological substances; Z88.0 Allergy status to penicillin; Z87.891 Personal history of nicotine dependence
CPT/HCPCS: 93005; 99213; G0463

== ENCOUNTER → 2019-01-26 13:17 | Emergency (ER) | payer MEDICARE, BC ==
[~2019-01-26 13:17] MED LIST: CMCS: Diazepam INJ (NF) 5 MG/ML 10 ML VIAL (50 MG TOTAL) IV ONE; Iodixanol* (CONTRAST) 320 MG/ML 100 ML SDV IV ONE; Losartan TAB* 25 MG PO ONE; NS 0.9% 1000 ML** 1,000 ML IV ONE; Ondansetron INJ* 2 MG/ML VIAL IV ONE; Ondansetron INJ* 2 MG/ML VIAL ONE; traMADol TAB* 50 MG PO ONE
--- NOTE | 2019-01-26 13:25 | ED ---
Neurological HPI - HPI Summary HPI Summary: Patient is a 73 y/o female brought in by EMS who presents to the ED c/o dizziness. She woke up this morning and was mildly dizzy. Patient then went to the dentist around 10:30, and her head was laid back which made the dizziness worse. She describes the dizziness as constant lightheadedness and near- syncope. Patient denies any room-spinning dizziness. She then got up and was off -balance with blurry vision and nausea, drifting towards the left. Patient stumbled and fell down, and cut her left ear on a metal chair. She denies any syncope, CP, SOB, vomiting, abdominal pain. After falling at the dentist she felt better and drove herself to the , where she then became dizzy again. Patient currently c/o mild intermittent left ear pain and a dry mouth. [place] stroke scale of 0 per EMS. She has a hx of vertigo and motion sickness, and states this episode feels similar to her prior vertigo. While in the room patient became nauseated and began vomiting. Patient was seen immediately on arrival to the ED. Cate Ranjit called at 13:20. - History of Current Complaint Stated Complaint: RULE OUT STROKE PER EMS Hx Obtained From: Patient, EMS Onset/Duration: Gradual Onset, Started hours ago - This morning, Still Present Onset Severity: Mild Neurological Deficit Location: Generalized Character: Lightheaded, Dizzy, Visual Changes - blurred Aggravating: Change in Head Position Alleviating: Nothing Associated Signs and Symptoms: Positive: Visual Changes, Dizziness, Lightheadness, Nausea/Vomiting. Negative: Chest Pain, Shortness of Breath - Allergy/Home Medications Allergies/Adverse Reactions: Allergies Allergy/AdvReac Type Severity Reaction Status Date / Time rosuvastatin [From Crestor] Allergy Severe Joint Pain Verified 01/26/19 13:19 amoxicillin Allergy Intermediate Dizziness Verified 01/26/19 13:19 Home Medications: Home Medications Calcium Carbonate [Calcium] 600 mg PO BID 01/26/19 [History Confirmed 01/26/19] Cholecalciferol TAB* [Vitamin D TAB*] 400 unit PO BID 01/26/19 [History Confirmed 01/26/19] Pravastatin (NF) [Pravachol (NF)] 80 mg PO BEDTIME 01/26/19 [History Confirmed 01/26/19] PMH/Surg Hx/FS Hx/Imm Hx Cardiovascular History: Reports: Hx Hypertension Neurological History: Reports: Other Neuro Impairments/Disorders - Vertigo, motion sickness - Surgical History Surgery Procedure, Year, and Place: mole removal from back - Family History Known Family History: Positive: Cardiac Disease, Hypertension - Social History Alcohol Use: Rare Hx Substance Use: No Substance Use Type: Reports: None Hx Tobacco Use: Yes Smoking Status (MU): Former Smoker Type: Cigarettes Review of Systems Positive: Other - dry mouth Positive: Blurred Vision Negative: Chest Pain Negative: Shortness Of Breath Positive: Nausea. Negative: Abdominal Pain, Vomiting Positive: Other - painful laceration to the left ear Neurological: Other - Dizziness, lightheadedness Positive: Syncope - near-syncope, NEGATIVE: syncope All Other Systems Reviewed And Are Negative: Yes Physical Exam - Summary Physical Exam Summary: Constitutional: Well-developed, Well-nourished, Alert. (-) Distressed Skin: Warm, Dry, 1 cm laceration to posterior left ear going through helix, 1 cm laceration on left superior auricle superior between helix and antihelix HENT: Normocephalic; Atraumatic, Dry oral mucosa Eyes: Conjunctiva normal, No nystagmus Neck: Musculoskeletal ROM normal neck. (-) JVD, (-) Stridor, (-) Tracheal deviation Cardio: Rhythm regular, rate normal, Heart sounds normal; Intact distal pulses; The pedal pulses are 2+ and symmetric. Radial pulses are 2+ and symmetric. (-) Murmur Pulmonary/Chest wall: Effort normal. (-) Respiratory distress, (-) Wheezes, (-) Rales Abd: Soft, (-) tenderness, (-) Distension, (-) Guarding, (-) Rebound Musculoskeletal: (-) Edema Lymph: (-) Cervical adenopathy Neuro: Alert, Oriented x3, Negative Maitland-Hallpike Psych: Mood and affect Normal Triage Information Reviewed: Yes Vital Signs Reviewed: Yes - Alok Coma Scale Best Eye Response: 4 - Spontaneous Best Motor Response: 6 - Obeys Commands Best Verbal Response: 5 - Oriented Coma Scale Total: 15 Procedures - Laceration/Wound Repair 1 Location: Other - left ear Description: Linear Anesthesia: Lido - 3 cc Length, Depth and Shape: 1 cm laceration to posterior left ear going through helix, 1 cm laceration on left superior auricle superior between helix and antihelix Suture Type: Other - fast-absorbing 5-0, simple interrupted Number of Sutures: 13 Diagnostics - Laboratory Result Diagrams: 01/26/19 13:53 01/26/19 13:53 Lab Statement: Any lab studies that have been ordered have been reviewed, and results considered in the medical decision making process. - Radiology CXR Radiology Interpretation Completed By: Radiologist Summary of Radiographic Findings: NO ACTIVE CARDIOPULMONARY DISEASE. ED physician reviewed radiology report. Brain MRI Radiology Interpretation Completed By: Radiologist Summary of Radiographic Findings: Atrophy. No restriction of diffusion. No other intracranial mass or hemorrhage is noted. ED physician reviewed radiology report. - CT Brain CT CT Interpretation Completed By: Radiologist Summary of CT Findings: There is no evidence of intracranial mass or hemorrhage. ED physician reviewed radiology report. Head CTA CT Interpretation Completed By: Radiologist Summary of CT Findings: 1. NO INTERNAL CAROTID ARTERY STENOSIS BY NASCET CRITERIA. 2. NO ANEURYSM, VASCULAR MALFORMATION, OCCLUSION, OR STENOSIS OF THE VISUALIZED INTRACRANIAL CIRCULATION. 3. 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 ED physician reviewed radiology report. - EKG 16:13 Cardiac Rate: NL - 67 bpm EKG Rhythm: Sinus Rhythm ST Segment: Normal Summary of EKG Findings: Normal VT, normal QRS, normal QTc, normal axis, flattened T-waves in II, III, AVF, V1, V2, non-specific EKG. NIH Scale - NIH Scale Level of Consciousness: Alert/Keenly Responsive Ask Patient the Month and His/Her Age: Both Correct Ask Pt to Open/Close Eyes and Beef Lugger/Release Non-Paretic Hand: Both Correctly Best Gaze (Only Horizontal Eye Movement): Normal Visual Field Testing: No Visual Loss Facial Paresis-Pt to Smile & Close Eyes or Grimace Symmetry: Normal/Symmetrical Motor Function - Right Arm: No Drift-Holds 10 Seconds Motor Function - Left Arm: No Drift-Holds 10 Seconds Motor Function - Right Leg: No Drift-Holds 10 Seconds Motor Function - Left Leg: No Drift-Holds 10 Seconds Limb Ataxia-Must be out of Proportion to Weakness Present: Absent Sensory (Use Pinprick to Test Arms/Legs/Trunk/Face): Normal Best Language (Describe Picture, Name Items): No Aphasia Dysarthria (Read Several Words): Normal Extinction and Inattention: No Abnormality Total Score: 0 Re-Evaluation - Re-Evaluation First Eval Re-Evaluation Time: 13:44 Change: Unchanged Comment: Discussed pt's symptoms with Dr. Abbott. Pt still feels nauseated, and her dizziness is still present but decreased. Will give Zofran. Second Eval Re-Evaluation Time: 15:05 Change: Unchanged Comment: Pt still has the same symptoms. Will repair ear laceration. Third Eval Re-Evaluation Time: 17:12 Change: Improved Comment: Pt feels much better. Discussed plan for Dr. Lakhani to consult. Fourth Eval Re-Evaluation Time: 19:23 Change: Unchanged Comment: Performed ear laceration repair. Course/Dx - Course Course Of Treatment: Patient is a 73 y/o female brought in by EMS who presents to the ED c/o lightheadedness, off-balance, blurry vision, and nausea. She hit her head on a metal chair and has a laceration to her left ear. Cate Church called at 13:20. A physical exam revealed 1 cm laceration to posterior left ear going through helix, 1 cm laceration on left superior auricle superior between helix and antihelix, no nystagmus, dry oral mucosa, and negative Maitland-Hallpike. GCS of 15. NIH of 0. A CXR, brain MRI, brain CT, and head CTA were all negative. An EKG revealed a normal rate of 67 bpm, flattened T-waves in II, III , AVF, V1, V2, and non-specific EKG. Bloodwork revealed a lactic acid of 3.4. Performed a laceration repair, gave 3 cc lido and 13 simple interrupted stitches. In the ED course patient was given Valium, Zofran, and fluids. Dr. Abbott consulted and stated the patient is not a TPA candidate and is not having a stroke. Dr. Lakhani consulted and said to suture the entire laceration including the auricle, and to follow up outpatient and patient doesn t require antibiotics. Final dx are vertigo, dehydration, and laceration. She will be discharged. Patient is agreeable with this plan. - Diagnoses Provider Diagnoses: Vertigo, Dehydration, Laceration During the Visit The Following Alert/Code Occurred: Cate Church - Called at 13:20 - Physician Notifications Discussed Care Of Patient With: Romel Abbott Time Discussed With Above Provider: 13:35 Instructed by Provider To: Other - Dr. Abbott is in the room for a consult. Pt is not a TPA candidate. At 16:33 Dr. Abbott believes she is not having a stroke. She can be discharged. At 17:10 Dr. Lakhani said he will come to the ED for a consult. At 17:38 Dr. Lakhani arrived in the room. He said to suture the entire ear including the auricle. Pt doesn't require antibiotics and can F/U with him outpatient. Discharge - Sign-Out/Discharge Documenting (check all that apply): Patient Departure - Discharge Patient Received Moderate/Deep Sedation with Procedure: No - Discharge Plan Condition: Improved Disposition: HOME Patient Education Materials: Dehydration (ED), Laceration (ED), Vertigo (ED) Print Language: [place] Referrals: Juanpablo Lakhani MD [Medical Doctor] - - Billing Disposition and Condition Condition: IMPROVED Disposition: Home - Attestation Statements Document Initiated by Scribe: Yes Documenting Scribe: Laverne Peterson Provider For Whom Jonathan is Documenting (Include Credential): Denise Saravia MD Scribe Attestation: [place], scribed for Denise Babb MD on 01/26/19 at 2132. Scribe Documentation Reviewed: Yes Provider Attestation: The documentation as recorded by the scribLaverne granados accurately reflects the service I personally performed and the decisions made by , Denise Saravia MD Status of Scribe Document: Viewed
[2019-01-26 14:05] LABS: ABS Basophils 0.1 10^3/ul (0-0.2); ABS Eosinophils 0.1 10^3/ul (0-0.6); ABS Lymphocytes 1.3 10^3/ul (1.0-4.8); ABS Monocytes 0.3 10^3/ul (0-0.8); ABS Neutrophils 9.4 10^3/ul (1.5-7.7); ABS Nucleated RBC 0 10^3/ul; Eosinophil % 0.7 %; Hematocrit 40 % (35-47); Hemoglobin 13.5 g/dl (12.0-16.0); Lymphocyte % 11.4 %; Mean Corpuscular HGB Conc 34 g/dl (31-36); Mean Corpuscular Hemoglobin 31 pg (27-31); Mean Corpuscular Volume 94 fL (80-97); Mean Platelet Volume 10.3 fL (7.4-10.4); Nucleated Red Blood Cells % 0; Platelet Count 304 10^3/ul (150-450); Red Blood Count 4.29 10^6/ul (4.00-5.40); Red Cell Distribution Width 13 % (10.5-15); White Blood Count 11.2 10^3/ul (3.5-10.8)
[2019-01-26 14:19] LABS: Activated Partial Thrombo Time 26.7 seconds (26.0-36.3); INR 0.97 (0.77-1.02)
[2019-01-26 14:24] LABS: BUN/Creatinine Ratio 20.6 (8-20); Potassium 3.9 mmol/L (3.5-5.0)
[2019-01-26 14:25] LABS: Albumin 4.5 g/dL (3.2-5.2); Albumin/Globulin Ratio 1.6 (1-3); Calcium 9.6 mg/dL (8.6-10.3); EGFR African American 102.9 (>60); EGFR Non-African American 85.1 (>60); Globulin 2.8 g/dL (2-4); HDL Cholesterol 41.3 mg/dL; Total Bilirubin 0.9 mg/dL (0.2-1.0); Total Protein 7.3 g/dL (6.4-8.9)
--- NOTE | 2019-01-26 15:45 | CONS ---
ADDENDUM NOW INCLUDED ON THIS REPORT NEUROLOGY CONSULTATION: DATE OF CONSULT: 01/26/19 LOCATION: She is in the emergency room. REFERRING PROVIDER: Dr. Babb. CHIEF COMPLAINT: Vertigo, nausea, vomiting. HISTORY OF PRESENT ILLNESS: aKtarzyna Deal is a 73-year-old right-handed woman who was at the dentist today getting a filling put in. The dentist leaned her far back in the chair and she became extremely vertiginous. She tried to get up with help, but fell on to her left side. She felt like she has been thrown to the side. She had nausea and vomited. She was sent to urgent care and from there by ambulance here to the emergency room. Time of onset of symptoms was 10:30 in the morning. Here in the emergency room, she continued to feel dizziness which was markedly precipitated by movement specifically a lying down and then getting back up again. There was no associated headache or change in vision. She had had some mild dizziness when she got out of bed the morning before last, but it only lasted several minutes. She has meclizine for motion sickness at home which she says she is very prone to. Other than that, she denies any history of vertigo. Other than the fall today at the dentist office, there is no history of head trauma. There is no prior history of stroke or transient ischemic attack. Currently other than vertigo and nausea, she has no additional symptoms. Specifically, no headache, change in hearing, numbness in the limbs, or double vision. PAST MEDICAL HISTORY: Notable for hypercholesterolemia, hypertension. MEDICATIONS AT HOME: Consist of: 1. Pravastatin 80 mg p.o. daily. 2. Omeprazole 20 mg p.o. daily. 3. Coreg 6.25 mg p.o. b.i.d. 4. Losartan 50 mg p.o. daily. 5. Meclizine 25 mg p.o. p.r.n. dizziness. 6. Cholecalciferol 400 units p.o. b.i.d. ALLERGIES: She is said to be allergic to AMOXICILLIN and ROSUVASTATIN. REVIEW OF SYSTEMS: Negative for recent trauma or surgeries. No significant headaches. No history of diabetes or heart disease. No prior history of stroke. No history of seizures or epilepsy. PHYSICAL EXAM: On examination, she is clearly uncomfortable and had vomited in the emergency room after a Rachel-Hallpike maneuver, and again in the CT scan or after she had been sat up again. Blood pressure was initially 215/87 and more recently 178/86. Initial temperature is 98.3 orally. Heart rates running in the 80s, respiratory rate 17, and oxygen saturation is 100% on room air. Neck is supple. Heart tones sound normal. Eye movements are normal. Visual reid are full to confrontation. There is no ptosis. [place]-Hallpike maneuver produced sense of dizziness and nausea when I sat her up, but it did not produce any nystagmus or a vertigo when we tilted her back to either side. Funduscopic exam is unremarkable. Facial musculature is symmetric. Facial sensation to light touch is symmetrical and to pin is symmetrical. Palate and tongue appear normal. There is old amanda of blood on her tongue. There is no dysarthria. Motor exam reveals normal strength in the limbs proximally and distally without drift of any of the limbs. Sensory exam to pin discrimination is intact and symmetric in the extremities. Finger taps are normal in the hands. Vwenuz-vt-jyoj maneuver is normal bilaterally. Pwwz-iv-wlql maneuver is somewhat limited, but there is no dysmetria. Reflexes are trace, but present. I did not attempt to ambulate her. She is alert and oriented and a good historian. Memory seems intact and language is fluent. She has reasonably good attention, concentration, and fund of knowledge. DIAGNOSTIC STUDIES/LAB DATA: Laboratory data includes a CT of the brain interpreted as normal. I reviewed the images and I agreed. CT angiogram of the neck and brain revealed some mild changes suggestive of fibromuscular dysplasia, but no significant intracranial or extracranial stenosis. Specifically, the vertebrobasilar system looks completely normal. Other laboratory data back so far includes a CBC with a borderline elevated white blood cell count at 11.2 and otherwise a normal CBC. Hwiwe-rj-xtae glucose is 132. IMPRESSION: My impression is that Katarzyna is having a peripheral vestibular disorder, possible vestibular neuronitis. It is moderately symptomatic other than the nausea and so I do not think she is having a cerebrovascular event. She is being treated symptomatically by Dr. Pacheco. I would recommend that she get an MRI scan of the brain once her nausea and vertigo is under control and be treated with hydration and antiemetics. I will continue to follow her along with you. Her NIH score is 0 and I did not consider her to be a tPA candidate. ADDENDUM: LOCATION: She is in emergency room, bed 3. EMERGENCY ROOM PHYSICIAN: Dr. Babb. CHIEF COMPLAINT: Vertigo. INTERVAL HISTORY: Since seen earlier today in the emergency room, Ms. Deal feels much better. She is accompanied by a friend. Her friend reports that she did have episodes of vertigo some years ago. She had an MRI of the brain, which I reviewed the images of and which has been reported as normal. Additional laboratory data includes a chemistry profile notable for a lactic acid of 3.4. Glucose is 133. Carbon dioxide was 21 and anion gap 15. The rest of the chemistry profile is unremarkable. IMPRESSION: Impression is that of an attack of peripheral vestibulopathy, probably viral. I am not sure why her lactic acid is elevated. I discussed the case with Dr. Babb. I think she will be discharged home if she is able to hold fluids and food down and walking safely. We talked about possibly repeating the lactic acid, but at this point, there is no overt evidence of infection or other explanation. [id number]/[facility] #: [id number]- [id number]/[facility] #: [id number] SHELBY
--- NOTE | 2019-01-26 18:05 | CONS ---
NEUROLOGY CONSULTATION: ADDENDUM: LOCATION: She is in emergency room, bed 3. EMERGENCY ROOM PHYSICIAN: Dr. Babb. CHIEF COMPLAINT: Vertigo. INTERVAL HISTORY: Since seen earlier today in the emergency room, Ms. Deal feels much better. She is accompanied by a friend. Her friend reports that she did have episodes of vertigo some years ago. She had an MRI of the brain, which I reviewed the images of and which has been reported as normal. Additional laboratory data includes a chemistry profile notable for a lactic acid of 3.4. Glucose is 133. Carbon dioxide was 21 and anion gap 15. The rest of the chemistry profile is unremarkable. IMPRESSION: Impression is that of an attack of peripheral vestibulopathy, probably viral. I am not sure why her lactic acid is elevated. I discussed the case with Dr. Babb. I think she will be discharged home if she is able to hold fluids and food down and walking safely. We talked about possibly repeating the lactic acid, but at this point, there is no overt evidence of infection or other explanation. [id number]/[id number] #: [id number] MTDD
[2019-01-26 21:49] VITALS: BP 178/88
== END | disposition home or self-care (01) ==
LOC: ED 13:17
DX: H81.20 Vestibular neuronitis, unspecified ear (principal); E86.0 Dehydration; S01.312A Laceration without foreign body of left ear, initial encounter; W22.03XA Walked into furniture, initial encounter; Y93.01 Activity, walking, marching and hiking; Y92.531 Health care provider office as the place of occurrence of the external cause; R11.2 Nausea with vomiting, unspecified; I10 Essential (primary) hypertension; Z88.0 Allergy status to penicillin; Z88.8 Allergy status to other drugs, medicaments and biological substances; Z87.891 Personal history of nicotine dependence
CPT/HCPCS: 12011; 36415; 70450; 70496; 70498; 70551; 71045; 80053; 80061; 83605; 84484; 85025; 85610; 85730; 86850; 86900; 86901; 93005; 96361; 96374; 96375; 99282; A9270-GY; J2405; J3360; Q9967